=== PATIENT | female | born 1995 | race Caucasian/White ===

== ENCOUNTER 2019-01-22 13:28 | Inpatient (IN) | payer MEDICAID, OTHER ==
[~2019-01-22] VITALS: Ht 167.6 cm; Wt 52.8 kg
--- NOTE | 2019-01-22 13:40 | NUR ---
ED Nurse Note: pt presents to ED c/o suprapubic abd pain that she rates a 9/10. pt states that she has been N/V since last PM and that her pain is now greater on the R side than left and radiates to the back side. pt denies pain with urination or changes in BM. the pain is "sharp and constant." pt also reports feeling "feverish" but did not take her temp at home. pt has a h/o ovarian CA that she has just finished up chemo for.
[2019-01-22] MEDS ORDERED: Omnipaque-300 100ml vial INJ PRN (13:45)
[2019-01-22] MEDS ORDERED: D5NS 1,000 ML IV ONE (13:45)
[2019-01-22] MEDS ORDERED: Lidocaine 2% Visc 15ml soln ORAL ONE (13:45)
--- NOTE | 2019-01-22 13:55 | Emergency Room Report ---
History of Present Illness General Chief Complaint: Abdominal Pain Source: Patient Present Illness HPI 23-year-old female history of metastatic ovarian cancer, presents with right lower quadrant pain that started last night, for dinner, she endorses nausea vomiting, sharp pain aggravated with movement alleviated with rest severity is severe, constant, she endorses fever/chills, reduced appetite, patient presents for evaluation. Allergies: Coded Allergies: KETAMINE (Verified Allergy, Unknown, 01/22/19) MORPHINE (Verified Allergy, Unknown, 01/22/19) Patient History Past Medical History: see triage record Last Menstrual Period: December Reviewed Nursing Documentation: PMH: Agreed; PSxH: Agreed Nursing Documentation-PMH Hx Cancer: Yes - OVARIAN Hx Seizures: Yes Review of Systems All Other Systems: negative except mentioned in HPI Physical Exam Vital Signs Date Time Temp Pulse Resp B/P (MAP) Pulse Ox O2 Delivery O2 Flow Rate FiO2 01/22/19 13:38 99.0 122 19 121/85 (97) 97 Room Air Sp02 EP Interpretation: reviewed, normal General Appearance: well appearing, no apparent distress, alert Head: normocephalic, atraumatic Eyes: bilateral eye PERRL, bilateral eye EOMI ENT: uvula midline, moist mucus membranes Neck: supple, thyroid normal, supple/symm/no masses Respiratory: lungs clear, no respiratory distress, no retraction, no accessory muscle use Cardiovascular #1: normal peripheral pulses, regular rate, rhythm, no edema, no gallop, no murmur Gastrointestinal: soft, no guarding, no rebound, tenderness - Tenderness right lower quadrant, no rebound no guarding, point tenderness McBurney's Musculoskeletal: normal inspection Neurologic: alert, oriented x3 Psychiatric: mood/affect normal Skin: no rash, warm/dry Medical Decision Making Diagnostic Impression: Primary Impression: Abdominal pain Qualified Codes: R10.30 - Lower abdominal pain, unspecified Additional Impression: Cancer associated pain ER Course 23-year-old female presents with lower abdominal pain, vision with a history of ovarian cancer, could be cancer related pain versus appendicitis versus colitis versus obstruction Reevaluation 2:25 PM, patient had a witnessed seizure in the CT, I was called to bedside, patient may have pseudo-versus real seizure, when her left hand was dropped above her face she dodged her face by moving the hand out of the way. Low suspicion for true seizure we will continue to monitor, patient is protecting her airway. Patient requiring Large amounts of pain medication, patient's heart rate would jump above 100, Will admit patient for intractable pain versus cancer related pain, and repeat abdominal exams. Patient admitted to Dr. [facility] Laboratory Tests Test 01/22/19 13:50 01/22/19 14:10 Urine Color Yellow Urine Appearance Clear Urine pH 5 (4.5-8.0) Urine Specific [place] 1.025 (1.005-1.035) Urine Protein 1+ (NEGATIVE) H Urine Glucose (UA) Negative (NEGATIVE) Urine Ketones 4+ (NEGATIVE) H Urine Blood Negative (NEGATIVE) Urine Nitrite Negative (NEGATIVE) Urine Bilirubin Negative (NEGATIVE) Urine Urobilinogen Normal MG/DL (0.0-1.0) Urine Leukocyte Esterase Negative (NEGATIVE) Urine RBC 0 /HPF (0 - 2) Urine WBC 0-2 /HPF (0 - 2) Urine Squamous Epithelial Cells Few /LPF (NONE/OCC) Urine Bacteria Occasional /HPF (NONE) Urine Mucus Few /LPF (NONE/OCC) H Urine HCG, Qualitative Negative (NEGATIVE) Urine Opiates Screen Positive (NEGATIVE) H Urine Barbiturates Screen Negative (NEGATIVE) Phencyclidine (PCP) Screen Negative (NEGATIVE) Urine Amphetamines Screen Negative (NEGATIVE) Urine Benzodiazepines Screen Negative (NEGATIVE) Urine Cocaine Screen Negative (NEGATIVE) Urine Marijuana (THC) Screen Negative (NEGATIVE) White Blood Count 8.8 K/UL (4.8-10.8) Red Blood Count 4.52 M/UL (4.20-5.40) Hemoglobin 13.4 G/DL (12.0-16.0) Hematocrit 38.9 % (37.0-47.0) Mean Corpuscular Volume 86 FL (80-99) Mean Corpuscular Hemoglobin 29.6 PG (27.0-31.0) Mean Corpuscular Hemoglobin Concent 34.4 G/DL (32.0-36.0) Red Cell Distribution Width 11.7 % (11.6-14.8) Platelet Count 265 K/UL (150-450) Mean Platelet Volume 4.5 FL (6.5-10.1) L Neutrophils (%) (Auto) 74.7 % (45.0-75.0) Lymphocytes (%) (Auto) 14.2 % (20.0-45.0) L Monocytes (%) (Auto) 8.1 % (1.0-10.0) Eosinophils (%) (Auto) 1.8 % (0.0-3.0) Basophils (%) (Auto) 1.2 % (0.0-2.0) Sodium Level 142 MMOL/L (136-145) Potassium Level 3.6 MMOL/L (3.5-5.1) Chloride Level 105 MMOL/L (98-107) Carbon Dioxide Level 26 MMOL/L (21-32) Anion Gap 12 mmol/L (5-15) Blood Urea Nitrogen 7 mg/dL (7-18) Creatinine 0.8 MG/DL (0.55-1.30) Estimate Glomerular Filtration Rate > 60 mL/min (>60) Glucose Level 90 MG/DL (74-106) Calcium Level 9.0 MG/DL (8.5-10.1) Total Bilirubin 1.9 MG/DL (0.2-1.0) H Direct Bilirubin 0.3 MG/DL (0.0-0.3) Aspartate Amino Transferase (AST) 11 U/L (15-37) L Alanine Aminotransferase (ALT) 20 U/L (12-78) Alkaline Phosphatase 76 U/L (46-116) Total Protein 7.4 G/DL (6.4-8.2) Albumin 3.9 G/DL (3.4-5.0) Globulin 3.5 g/dL Albumin/Globulin Ratio 1.1 (1.0-2.7) Lipase 70 U/L (73-393) L Human Chorionic Gonadotropin, Quant 1 mIU/mL (1-6) CT/MRI/US Diagnostic Results CT/MRI/US Diagnostic Results : Impression Procedure: CT Abdomen Pelvis w/Contrast Clinical Indication: Right lower quadrant abdominal pain Technique: No oral contrast utilized, per emergency room physician request IV administration nonionic contrast. Venous phase spiral acquisition obtained through the abdomen and pelvis. Multiplanar reconstructions were generated. Total dose length product 557 mGycm. CTDIvol(s) 10 mGy. Dose reduction achieved using automated exposure control Comparison: none Findings: No evidence of colonic diverticulosis or diverticulitis. The appendix is not definitely identified, but no findings to suggest acute appendicitis are evident. No small bowel distention. No free or loculated intraperitoneal gas or fluid is evident. The distal esophagus, stomach, duodenum are unremarkable. The liver demonstrates some focal fatty change in the usual location adjacent to the falciform ligament. No other focal abnormality. The gallbladder, bile ducts, pancreas, adrenals, kidneys are unremarkable. No renal or ureteral calculi, hydronephrosis, nor hydroureter. No pelvic mass or adenopathy demonstrated. The spleen is enlarged, measuring 14.2 cm long axis dimension. The included lung bases are clear. The bones are unremarkable. Impression: Splenomegaly No acute process The CT scanner at [facility] is accredited by the [employer] and the scans are performed using protocols designed to limit radiation exposure to as low as reasonably achievable to attain images of sufficient resolution adequate for diagnostic evaluation. Dictated By: Bryon Wilson MD Electronically Signed By: Bryon Wilson MD Signed Date/Time 01/22/19 5298 CC: Hector Richard MD Last Vital Signs Date Time Temp Pulse Resp B/P (MAP) Pulse Ox O2 Delivery O2 Flow Rate FiO2 01/22/19 13:38 99.0 122 19 121/85 (97) 97 Room Air Disposition: ADMITTED INPATIENT Condition: Stable Hector Richard MD Jan 22, 2019 13:55
[2019-01-22] MEDS ORDERED: Hydromorphone 0.5mg/0.5ml inj IVP ONE ×3 (14:00→17:30)
[2019-01-22 14:15] LABS: APPEARANCE,URINE CLEAR; BILIRUBIN, URINE NEGATIVE (NEGATIVE); GLUCOSE, URINE (UA) NEGATIVE (NEGATIVE); KETONES,URINE 4+ (NEGATIVE); LEUKOCYTE ESTERASE ,URINE NEGATIVE (NEGATIVE); NITRITE,URINE NEGATIVE (NEGATIVE); PH,URINE 5 (4.5-8.0); PROTEIN,URINE 1+ (NEGATIVE); UROBILINOGEN,URINE NORMAL MG/DL (0.0-1.0)
[2019-01-22 14:16] VITALS: BP 121/85
[2019-01-22 14:19] LABS: COLOR,URINE YELLOW
--- NOTE | 2019-01-22 14:20 | NUR ---
ED Nurse Note: pt was taken down to CT
[2019-01-22 14:25] LABS: BASOPHILS % (AUTO) 1.2 % (0.0-2.0); EOSINOPHILS % (AUTO) 1.8 % (0.0-3.0); HEMATOCRIT 38.9 % (37.0-47.0); HEMOGLOBIN 13.4 G/DL (12.0-16.0); LYMPHOCYTES % (AUTO) 14.2 % (20.0-45.0); MEAN CORPUSCULAR VOLUME 86 FL (80-99); MONOCYTES % (AUTO) 8.1 % (1.0-10.0); NEUTROPHILS % (AUTO) 74.7 % (45.0-75.0); PLATELET COUNT 265 K/UL (150-450); RED BLOOD COUNT 4.52 M/UL (4.20-5.40); RED CELL DISTRIBUTION WIDTH 11.7 % (11.6-14.8); WHITE BLOOD COUNT 8.8 K/UL (4.8-10.8)
[2019-01-22 14:41] LABS: ANION GAP 12 mmol/L (5-15); BLOOD UREA NITROGEN 7 mg/dL (7-18); CARBON DIOXIDE 26 MMOL/L (21-32); CHLORIDE 105 MMOL/L (98-107); CREATININE 0.8 MG/DL (0.55-1.30); POTASSIUM 3.6 MMOL/L (3.5-5.1); SODIUM 142 MMOL/L (136-145)
[2019-01-22 14:49] LABS: ALANINE AMINOTRANSFERASE 20 U/L (12-78); ALBUMIN 3.9 G/DL (3.4-5.0); ALBUMIN/GLOBULIN RATIO 1.1 (1.0-2.7); ALKALINE PHOSPHATASE 76 U/L (46-116); ASPARTATE AMINO TRANSFERASE 11 U/L (15-37); BILIRUBIN,TOTAL 1.9 MG/DL (0.2-1.0)
--- NOTE | 2019-01-22 14:50 | NUR ---
ED Nurse Note: pt had an episode of LOC in CT after contrast was given
[2019-01-22 15:04] LABS: BILIRUBIN,DIRECT 0.3 MG/DL (0.0-0.3)
[2019-01-22] MEDS ORDERED: LORazepam Inj 2mg/ml 1ml ONE (15:25)
[2019-01-22 16:00] VITALS: BP 111/63
--- NOTE | 2019-01-22 16:00 | NUR ---
ED Nurse Note: pt was able to ambulate to the restroom but c/o R sided abd px when she ambulated and when she returned. ERMD aware
--- NOTE | 2019-01-22 17:02 | Diagnostic Imaging Report ---
Clinical Indication: Right lower quadrant abdominal pain Technique: No oral contrast utilized, per emergency room physician request IV administration nonionic contrast. Venous phase spiral acquisition obtained through the abdomen and pelvis. Multiplanar reconstructions were generated. Total dose length product 557 mGycm. CTDIvol(s) 10 mGy. Dose reduction achieved using automated exposure control Comparison: none Findings: No evidence of colonic diverticulosis or diverticulitis. The appendix is not definitely identified, but no findings to suggest acute appendicitis are evident. No small bowel distention. No free or loculated intraperitoneal gas or fluid is evident. The distal esophagus, stomach, duodenum are unremarkable. The liver demonstrates some focal fatty change in the usual location adjacent to the falciform ligament. No other focal abnormality. The gallbladder, bile ducts, pancreas, adrenals, kidneys are unremarkable. No renal or ureteral calculi, hydronephrosis, nor hydroureter. No pelvic mass or adenopathy demonstrated. The spleen is enlarged, measuring 14.2 cm long axis dimension. The included lung bases are clear. The bones are unremarkable. Impression: Splenomegaly No acute process The CT scanner at [facility] is accredited by the [employer] and the scans are performed using protocols designed to limit radiation exposure to as low as reasonably achievable to attain images of sufficient resolution adequate for diagnostic evaluation.
[2019-01-22 17:24] VITALS: BP 105/58
--- NOTE | 2019-01-22 18:08 | NUR ---
ED Nurse Note: pt spoke with Dr. Richard and explained that she wanted to stay in the hospital overnight because she is worried about the abd px that has not improved.
--- NOTE | 2019-01-22 18:58 | NUR ---
ED Nurse Note: change of shift, asked to call back in 5 minutes
[2019-01-22 19:25] VITALS: BP 112/59
--- NOTE | 2019-01-22 19:44 | NUR ---
ED Nurse Note: report given to YOVANI Florentino. pt transported by Kevin Adame. in no acute distress, able to keep a sandwich and water down without vomiting
--- NOTE | 2019-01-22 20:05 | NUR ---
NURSE NOTES: Pt received from ER, pt able to make needs known, alert and oriented, pt gave me a list of medications that she takes and I will go over them with the MD, Pt Vitals 98.8, 84hr, 18 rr, BP 104/71, 99% O2 with a pain level of 9.
--- NOTE | 2019-01-22 21:00 | NUR ---
NURSE NOTES: Spoke with MD Owens and received admission orders, went over pt medication and will put orders in the system.
[2019-01-22] MEDS ORDERED: HYDROmorphone 1mg/ml Carpuject IVP PRN (21:45)
[2019-01-22] MEDS ORDERED: LORazepam 0.5mg tab ORAL PRN (21:45)
[2019-01-22] MEDS: Metoclopramide 10mg/2ml Inj IVP PRN (22:06)
[2019-01-22] MEDS: HYDROmorphone 1mg/ml Carpuject IVP PRN (22:35)
--- NOTE | 2019-01-23 07:36 | NUR ---
HAND-OFF: Report given to YOVANI Arreaga.
--- NOTE | 2019-01-23 07:50 | NUR ---
NURSE NOTES: Patient awake, alert x4; on room air, IV Right AC 20G flushes well; will keep monitoring of vomiting; side rails up x2, breaks engaged, bed at lowest position; call light within reach; will keep monitoring.
[2019-01-23 08:00] VITALS: BP 122/78
[2019-01-23 08:19] LABS: HEMOGLOBIN 12.9 G/DL (12.0-16.0); LYMPHOCYTES % (AUTO) 23.4 % (20.0-45.0); MEAN CORPUSCULAR VOLUME 85 FL (80-99); MONOCYTES % (AUTO) 10.8 % (1.0-10.0); NEUTROPHILS % (AUTO) 58.8 % (45.0-75.0); PLATELET COUNT 225 K/UL (150-450); RED BLOOD COUNT 4.24 M/UL (4.20-5.40); RED CELL DISTRIBUTION WIDTH 11.4 % (11.6-14.8); WHITE BLOOD COUNT 6.2 K/UL (4.8-10.8)
[2019-01-23 08:38] LABS: ANION GAP 11 mmol/L (5-15); BLOOD UREA NITROGEN 5 mg/dL (7-18); CALCIUM 8.7 MG/DL (8.5-10.1); CARBON DIOXIDE 26 MMOL/L (21-32); CHLORIDE 106 MMOL/L (98-107); CREATININE 0.5 MG/DL (0.55-1.30); POTASSIUM 3.4 MMOL/L (3.5-5.1); SODIUM 143 MMOL/L (136-145)
--- NOTE | 2019-01-23 08:43 | History and Physical ---
History of Present Illness General Date patient seen: Jan 23, 2019 Reason for Hospitalization: Abdominal Pain Present Illness HPI 23-year-old female history of metastatic ovarian cancer since December 2015 and GBM s/p radiation presents with right lower quadrant pain that started the night prior to admission 12/08, associated with nausea and vomiting. Pain ia constant. Movement aggravates it. She has no appetite. At times has fever and chills. Her ovarian cancer is metastatic to the brain as well as local mets. She has been getting chemo at [facility], Dr. Joseph, has had chemo IV and po, most recently has been on everolimus/affinitor, is s/p XRT to the brain, has had a pelvic lymphadenectomy, and lymph node dissection. ct done in the ED reviewed and remarkable for splenomegaly. She tells me she is BRCA negative. At the time of my exam she is very pleasant. Denies overt pain at rest. She tells me ER doc wanted to discharge her but she didn't feel comfortable going home. Denies dysuria, has normal BM. Last menstrual cycle early December. She has refused debulking and further surgery so far. PMH: as above PSH: Laparoscopy. lymph node dissection Social history: no toxic habits Family hisotry: heart disease, lung cancer Allergies: Coded Allergies: KETAMINE (Verified Allergy, Unknown, 01/22/19) MORPHINE (Verified Allergy, Unknown, 01/22/19) Patient History Healthcare decision maker N Resuscitation status Full Code Advanced Directive on File Social History Social History: (1) Cancer associated pain (2) Abdominal pain Review of Systems Constitutional: Reports: no symptoms, see HPI, chills, sweats, fever, malaise, weakness, other Eye: Denies: no symptoms, see HPI, eye pain, blurred vision, tearing, double vision, nose pain, nose congestion, acuity changes, discharge, other ENT: Denies: no symptoms, see HPI, ear pain, ear discharge, nose pain, nose congestion, throat pain, throat swelling, mouth pain, hearing loss, nasal discharge, other Respiratory: Denies: no symptoms, see HPI, cough, orthopnea, shortness of breath, stridor, wheezing, MIRZA, sputum, other Cardiovascular: Denies: no symptoms, see HPI, chest pain, edema, palpitations, syncope, PND, other Gastrointestinal: Reports: no symptoms, see HPI, abdominal pain, constipation, diarrhea, nausea, vomiting, melena, hematemesis, other Genitourinary: Denies: no symptoms, see HPI, discharge, dysuria, frequency, hematuria, pain, retention, incontinence, urgency, vag bleed/dc, other Musculoskeletal: Denies: no symptoms, see HPI, back pain, gout, joint pain, joint swelling, muscle pain, muscle stiffness, other Skin: Denies: no symptoms, see HPI, rash, change in color, change in hair/nails , dryness, lesions, other Psychiatric: Denies: no symptoms, see HPI, prior hx, anxiety, depressed feelings, emotional problems, SI, HI, hallucinations, other Neurological: Denies: no symptoms, see HPI, headache, numbness, paresthesia, seizure, tingling, tremors, focal weakness, syncope, dizziness, other Endocrine: Denies: no symptoms, see HPI, excessive sweating, flushing, intolerance to temperature, increased thirst, increased urine, unexplained weight loss, other Hematologic/Lymphatic: Denies: no symptoms, see HPI, anemia, blood clots, easy bleeding, easy bruising, swollen glands, diathesis, other Physical Exam Physical Exam Narrative General Appearance: well appearing, no apparent distress, alert Head: normocephalic, atraumatic Eyes: bilateral eye PERRL, bilateral eye EOMI ENT: uvula midline, moist mucus membranes Neck: supple, thyroid normal, supple/symm/no masses Respiratory: lungs clear, no respiratory distress, no retraction, no accessory muscle use Cardiovascular: normal peripheral pulses, regular rate, rhythm, no edema, no gallop, no murmur Gastrointestinal: soft, no guarding, no rebound, tenderness - Tenderness right lower quadrant, Rovsing's positive Musculoskeletal: normal inspection Neurologic: alert, oriented x3, grossly normal Psychiatric: mood/affect normal, Skin: no rash, warm/dry Last 24 Hour Vital Signs Date Time Temp Pulse Resp B/P (MAP) Pulse Ox O2 Delivery O2 Flow Rate FiO2 01/22/19 21:55 Room Air 01/22/19 19:45 82 15 112/59 100 Room Air 01/22/19 19:25 82 14 112/59 98 Room Air 01/22/19 17:24 93 13 105/58 98 Room Air 01/22/19 16:30 98.9 01/22/19 16:00 86 111/63 97 Room Air 01/22/19 15:30 98.9 01/22/19 14:16 99.0 19 121/85 97 Room Air 01/22/19 14:14 122 19 Room Air 01/22/19 13:38 99.0 122 19 121/85 (97) 97 Room Air Intake and Output 01/22/19 01/23/19 19:00 07:00 Intake Total 300 ml Output Total 500 ml Balance -200 ml Intake Oral 300 ml Output Urine Total 500 ml # Voids 4 Laboratory Tests Test 01/22/19 13:50 01/22/19 14:10 01/23/19 07:20 Urine Color Yellow Urine Appearance Clear Urine pH 5 (4.5-8.0) Urine Specific [place] 1.025 (1.005-1.035) Urine Protein 1+ (NEGATIVE) H Urine Glucose (UA) Negative (NEGATIVE) Urine Ketones 4+ (NEGATIVE) H Urine Blood Negative (NEGATIVE) Urine Nitrite Negative (NEGATIVE) Urine Bilirubin Negative (NEGATIVE) Urine Urobilinogen Normal MG/DL (0.0-1.0) Urine Leukocyte Esterase Negative (NEGATIVE) Urine RBC 0 /HPF (0 - 2) Urine WBC 0-2 /HPF (0 - 2) Urine Squamous Epithelial Cells Few /LPF (NONE/OCC) Urine Bacteria Occasional /HPF (NONE) Urine Mucus Few /LPF (NONE/OCC) H Urine HCG, Qualitative Negative (NEGATIVE) Urine Opiates Screen Positive (NEGATIVE) H Urine Barbiturates Screen Negative (NEGATIVE) Phencyclidine (PCP) Screen Negative (NEGATIVE) Urine Amphetamines Screen Negative (NEGATIVE) Urine Benzodiazepines Screen Negative (NEGATIVE) Urine Cocaine Screen Negative (NEGATIVE) Urine Marijuana (THC) Screen Negative (NEGATIVE) White Blood Count 8.8 K/UL (4.8-10.8) 6.2 K/UL (4.8-10.8) Red Blood Count 4.52 M/UL (4.20-5.40) 4.24 M/UL (4.20-5.40) Hemoglobin 13.4 G/DL (12.0-16.0) 12.9 G/DL (12.0-16.0) Hematocrit 38.9 % (37.0-47.0) 36.0 % (37.0-47.0) L Mean Corpuscular Volume 86 FL (80-99) 85 FL (80-99) Mean Corpuscular Hemoglobin 29.6 PG (27.0-31.0) 30.4 PG (27.0-31.0) Mean Corpuscular Hemoglobin Concent 34.4 G/DL (32.0-36.0) 35.8 G/DL (32.0-36.0) Red Cell Distribution Width 11.7 % (11.6-14.8) 11.4 % (11.6-14.8) L Platelet Count 265 K/UL (150-450) 225 K/UL (150-450) Mean Platelet Volume 4.5 FL (6.5-10.1) L 5.2 FL (6.5-10.1) L Neutrophils (%) (Auto) 74.7 % (45.0-75.0) 58.8 % (45.0-75.0) Lymphocytes (%) (Auto) 14.2 % (20.0-45.0) L 23.4 % (20.0-45.0) Monocytes (%) (Auto) 8.1 % (1.0-10.0) 10.8 % (1.0-10.0) H Eosinophils (%) (Auto) 1.8 % (0.0-3.0) 6.0 % (0.0-3.0) H Basophils (%) (Auto) 1.2 % (0.0-2.0) 1.0 % (0.0-2.0) Sodium Level 142 MMOL/L (136-145) 143 MMOL/L (136-145) Potassium Level 3.6 MMOL/L (3.5-5.1) 3.4 MMOL/L (3.5-5.1) L Chloride Level 105 MMOL/L (98-107) 106 MMOL/L (98-107) Carbon Dioxide Level 26 MMOL/L (21-32) 26 MMOL/L (21-32) Anion Gap 12 mmol/L (5-15) 11 mmol/L (5-15) Blood Urea Nitrogen 7 mg/dL (7-18) 5 mg/dL (7-18) L Creatinine 0.8 MG/DL (0.55-1.30) 0.5 MG/DL (0.55-1.30) L Estimat Glomerular Filtration Rate > 60 mL/min (>60) > 60 mL/min (>60) Glucose Level 90 MG/DL (74-106) 78 MG/DL (74-106) Calcium Level 9.0 MG/DL (8.5-10.1) 8.7 MG/DL (8.5-10.1) Total Bilirubin 1.9 MG/DL (0.2-1.0) H Direct Bilirubin 0.3 MG/DL (0.0-0.3) Aspartate Amino Transf (AST/SGOT) 11 U/L (15-37) L Alanine Aminotransferase (ALT/SGPT) 20 U/L (12-78) Alkaline Phosphatase 76 U/L (46-116) Total Protein 7.4 G/DL (6.4-8.2) Albumin 3.9 G/DL (3.4-5.0) Globulin 3.5 g/dL Albumin/Globulin Ratio 1.1 (1.0-2.7) Lipase 70 U/L (73-393) L Human Chorionic Gonadotropin, Quant 1 mIU/mL (1-6) Height (Feet): 5 Height (Inches): 6.00 Weight (Pounds): 117 Medications Current Medications Medications (Trade) Dose Ordered Sig/Enrique Route PRN Reason Start Time Stop Time Status Last Admin Dose Admin Acetaminophen/ Hydrocodone Bitart ([place] 5/325) 1 tab Q6H PRN ORAL Moderate Pain (Pain Scale 4-6) 01/22/19 21:45 01/29/19 21:44 Carbamazepine (TEGretol) 200 mg BID ORAL 01/23/19 09:00 02/22/19 08:59 Dexamethasone (Decadron) 2 mg DAILY ORAL 01/23/19 09:00 02/22/19 08:59 Heparin Sodium (Porcine) (Heparin 5000 units/ml) 5,000 units EVERY 12 HOURS SUBQ 01/23/19 09:00 02/22/19 08:59 Hydromorphone HCl (Dilaudid) 0.5 mg Q3HR PRN IVP Breakthrough Pain 01/22/19 21:45 01/29/19 21:44 Hydromorphone HCl (Dilaudid) 1 mg Q3HR PRN IVP Severe Pain (Pain Scale 7-10) 01/22/19 21:45 01/29/19 21:44 01/22/19 22:35 Iohexol (OMNIPAQUE-300 100ml) 100 ml NOW PRN INJ Radiology Procedure 01/22/19 13:45 01/24/19 13:44 Lorazepam (Ativan) 0.25 mg BEDTIME PRN ORAL For Anxiety 01/22/19 21:45 01/29/19 21:44 Metoclopramide HCl (Reglan) 10 mg Q6H PRN IVP Nausea & Vomiting 01/22/19 21:45 02/21/19 21:44 01/22/19 22:06 Ondansetron HCl (Zofran) 4 mg Q6H PRN ORAL Nausea & Vomiting 01/22/19 21:45 02/21/19 21:44 Trazodone HCl (Desyrel) 25 mg BEDTIME ORAL 01/23/19 21:00 02/22/19 20:59 Objective Narrative Procedure: CT Abdomen Pelvis w/Contrast Clinical Indication: Right lower quadrant abdominal pain Technique: No oral contrast utilized, per emergency room physician request IV administration nonionic contrast. Venous phase spiral acquisition obtained through the abdomen and pelvis. Multiplanar reconstructions were generated. Total dose length product 557 mGycm. CTDIvol(s) 10 mGy. Dose reduction achieved using automated exposure control Comparison: none Findings: No evidence of colonic diverticulosis or diverticulitis. The appendix is not definitely identified, but no findings to suggest acute appendicitis are evident. No small bowel distention. No free or loculated intraperitoneal gas or fluid is evident. The distal esophagus, stomach, duodenum are unremarkable. The liver demonstrates some focal fatty change in the usual location adjacent to the falciform ligament. No other focal abnormality. The gallbladder, bile ducts, pancreas, adrenals, kidneys are unremarkable. No renal or ureteral calculi, hydronephrosis, nor hydroureter. No pelvic mass or adenopathy demonstrated. The spleen is enlarged, measuring 14.2 cm long axis dimension. The included lung bases are clear. The bones are unremarkable. Impression: Splenomegaly No acute process Assessment/Plan Problem List: (1) Abdominal pain ICD Codes: R10.9 - Unspecified abdominal pain SNOMED: 69143035 Qualifiers: Qualified Codes: R10.30 - Lower abdominal pain, unspecified (2) Cancer associated pain ICD Codes: G89.3 - Neoplasm related pain (acute) (chronic) SNOMED: 59781445621493 (3) Ovarian cancer ICD Codes: C56.9 - Malignant neoplasm of unspecified ovary SNOMED: 028432216 (4) Primary cancer of ovary with widespread metastatic disease ICD Codes: C56.9 - Malignant neoplasm of unspecified ovary; C80.0 - Disseminated malignant neoplasm, unspecified SNOMED: [id number] Status: stable Assessment/Plan: 23 year old female with Ovarian cancer that is metastatic to the brain as well as local area. She has been getting chemo at [facility], Dr. Joseph, has had chemo IV and po, most recently has been on everolimus/affinitor, is s/p XRT to the brain, has had a pelvic lymphadenectomy, and lymph node dissection, now p/w worsening abdominal pain. #Abdominal pain. ? related to mets, ?cancer related pain, ? adhesions #Metastatic ovarian CA with brain mets -ct reviewed, splenomegaly -surgical evaluation, GI evaluation -Hematology consult. case d/w Dr. [place] -pain control -stool softener -Serial abdominal exams I spent 70 minutes on this encounter. >50% spent on care coordination and counselling. Time of note may not reflect time of encounter Kyler Aldrich M.D. Jan 23, 2019 08:43
[2019-01-23] MEDS: carBAMazepine 200mg tab ORAL SCH ×2 (08:49→17:37)
[2019-01-23] MEDS: Metoclopramide 10mg/2ml Inj IVP PRN ×3 (08:49→22:30)
[2019-01-23] MEDS: Heparin 5000 units/ml inj SUBQ SCH ×2 (08:50→20:46)
[2019-01-23] MEDS: HYDROmorphone 1mg/ml Carpuject IVP PRN ×2 (08:53→15:39)
[2019-01-23 12:00] VITALS: BP 100/83
[2019-01-23] MEDS: HYDROcodone/Acetamin 5/325 tab ORAL PRN ×2 (12:01→18:17)
--- NOTE | 2019-01-23 12:06 | Consultation ---
History of Present Illness General Chief Complaint: Abdominal Pain Present Illness Allergies: Coded Allergies: KETAMINE (Verified Allergy, Unknown, 01/22/19) MORPHINE (Verified Allergy, Unknown, 01/22/19) Patient History Healthcare decision maker N Resuscitation status Full Code Advanced Directive on File Physical Exam Last 24 Hour Vital Signs Date Time Temp Pulse Resp B/P (MAP) Pulse Ox O2 Delivery O2 Flow Rate FiO2 01/23/19 09:23 97.6 01/23/19 08:00 97.6 90 18 122/78 (93) 99 01/22/19 21:55 Room Air 01/22/19 19:45 82 15 112/59 100 Room Air 01/22/19 19:25 82 14 112/59 98 Room Air 01/22/19 17:24 93 13 105/58 98 Room Air 01/22/19 16:30 98.9 01/22/19 16:00 86 111/63 97 Room Air 01/22/19 15:30 98.9 01/22/19 14:16 99.0 19 121/85 97 Room Air 01/22/19 14:14 122 19 Room Air 01/22/19 13:38 99.0 122 19 121/85 (97) 97 Room Air Intake and Output 01/22/19 01/23/19 19:00 07:00 Intake Total 300 ml Output Total 500 ml Balance -200 ml Intake Oral 300 ml Output Urine Total 500 ml # Voids 4 Laboratory Tests Test 01/22/19 13:50 01/22/19 14:10 01/23/19 07:20 Urine Color Yellow Urine Appearance Clear Urine pH 5 (4.5-8.0) Urine Specific [place] 1.025 (1.005-1.035) Urine Protein 1+ (NEGATIVE) H Urine Glucose (UA) Negative (NEGATIVE) Urine Ketones 4+ (NEGATIVE) H Urine Blood Negative (NEGATIVE) Urine Nitrite Negative (NEGATIVE) Urine Bilirubin Negative (NEGATIVE) Urine Urobilinogen Normal MG/DL (0.0-1.0) Urine Leukocyte Esterase Negative (NEGATIVE) Urine RBC 0 /HPF (0 - 2) Urine WBC 0-2 /HPF (0 - 2) Urine Squamous Epithelial Cells Few /LPF (NONE/OCC) Urine Bacteria Occasional /HPF (NONE) Urine Mucus Few /LPF (NONE/OCC) H Urine HCG, Qualitative Negative (NEGATIVE) Urine Opiates Screen Positive (NEGATIVE) H Urine Barbiturates Screen Negative (NEGATIVE) Phencyclidine (PCP) Screen Negative (NEGATIVE) Urine Amphetamines Screen Negative (NEGATIVE) Urine Benzodiazepines Screen Negative (NEGATIVE) Urine Cocaine Screen Negative (NEGATIVE) Urine Marijuana (THC) Screen Negative (NEGATIVE) White Blood Count 8.8 K/UL (4.8-10.8) 6.2 K/UL (4.8-10.8) Red Blood Count 4.52 M/UL (4.20-5.40) 4.24 M/UL (4.20-5.40) Hemoglobin 13.4 G/DL (12.0-16.0) 12.9 G/DL (12.0-16.0) Hematocrit 38.9 % (37.0-47.0) 36.0 % (37.0-47.0) L Mean Corpuscular Volume 86 FL (80-99) 85 FL (80-99) Mean Corpuscular Hemoglobin 29.6 PG (27.0-31.0) 30.4 PG (27.0-31.0) Mean Corpuscular Hemoglobin Concent 34.4 G/DL (32.0-36.0) 35.8 G/DL (32.0-36.0) Red Cell Distribution Width 11.7 % (11.6-14.8) 11.4 % (11.6-14.8) L Platelet Count 265 K/UL (150-450) 225 K/UL (150-450) Mean Platelet Volume 4.5 FL (6.5-10.1) L 5.2 FL (6.5-10.1) L Neutrophils (%) (Auto) 74.7 % (45.0-75.0) 58.8 % (45.0-75.0) Lymphocytes (%) (Auto) 14.2 % (20.0-45.0) L 23.4 % (20.0-45.0) Monocytes (%) (Auto) 8.1 % (1.0-10.0) 10.8 % (1.0-10.0) H Eosinophils (%) (Auto) 1.8 % (0.0-3.0) 6.0 % (0.0-3.0) H Basophils (%) (Auto) 1.2 % (0.0-2.0) 1.0 % (0.0-2.0) Sodium Level 142 MMOL/L (136-145) 143 MMOL/L (136-145) Potassium Level 3.6 MMOL/L (3.5-5.1) 3.4 MMOL/L (3.5-5.1) L Chloride Level 105 MMOL/L (98-107) 106 MMOL/L (98-107) Carbon Dioxide Level 26 MMOL/L (21-32) 26 MMOL/L (21-32) Anion Gap 12 mmol/L (5-15) 11 mmol/L (5-15) Blood Urea Nitrogen 7 mg/dL (7-18) 5 mg/dL (7-18) L Creatinine 0.8 MG/DL (0.55-1.30) 0.5 MG/DL (0.55-1.30) L Estimat Glomerular Filtration Rate > 60 mL/min (>60) > 60 mL/min (>60) Glucose Level 90 MG/DL (74-106) 78 MG/DL (74-106) Calcium Level 9.0 MG/DL (8.5-10.1) 8.7 MG/DL (8.5-10.1) Total Bilirubin 1.9 MG/DL (0.2-1.0) H Direct Bilirubin 0.3 MG/DL (0.0-0.3) Aspartate Amino Transf (AST/SGOT) 11 U/L (15-37) L Alanine Aminotransferase (ALT/SGPT) 20 U/L (12-78) Alkaline Phosphatase 76 U/L (46-116) Total Protein 7.4 G/DL (6.4-8.2) Albumin 3.9 G/DL (3.4-5.0) Globulin 3.5 g/dL Albumin/Globulin Ratio 1.1 (1.0-2.7) Lipase 70 U/L (73-393) L Human Chorionic Gonadotropin, Quant 1 mIU/mL (1-6) Height (Feet): 5 Height (Inches): 6.00 Weight (Pounds): 117 Medications Current Medications Medications (Trade) Dose Ordered Sig/Enrique Route PRN Reason Start Time Stop Time Status Last Admin Dose Admin Acetaminophen/ Hydrocodone Bitart ([place] 5/325) 1 tab Q6H PRN ORAL Moderate Pain (Pain Scale 4-6) 01/22/19 21:45 01/29/19 21:44 Carbamazepine (TEGretol) 200 mg BID ORAL 01/23/19 09:00 02/22/19 08:59 01/23/19 08:49 Dexamethasone (Decadron) 2 mg DAILY ORAL 01/23/19 09:00 02/22/19 08:59 01/23/19 08:49 Heparin Sodium (Porcine) (Heparin 5000 units/ml) 5,000 units EVERY 12 HOURS SUBQ 01/23/19 09:00 02/22/19 08:59 01/23/19 08:50 Hydromorphone HCl (Dilaudid) 0.5 mg Q3HR PRN IVP Breakthrough Pain 01/22/19 21:45 01/29/19 21:44 Hydromorphone HCl (Dilaudid) 1 mg Q3HR PRN IVP Severe Pain (Pain Scale 7-10) 01/22/19 21:45 01/29/19 21:44 01/23/19 08:53 Iohexol (OMNIPAQUE-300 100ml) 100 ml NOW PRN INJ Radiology Procedure 01/22/19 13:45 01/24/19 13:44 Lorazepam (Ativan) 0.25 mg BEDTIME PRN ORAL For Anxiety 01/22/19 21:45 01/29/19 21:44 Metoclopramide HCl (Reglan) 10 mg Q6H PRN IVP Nausea & Vomiting 01/22/19 21:45 02/21/19 21:44 01/23/19 08:49 Ondansetron HCl (Zofran) 4 mg Q6H PRN ORAL Nausea & Vomiting 01/22/19 21:45 02/21/19 21:44 Trazodone HCl (Desyrel) 25 mg BEDTIME ORAL 01/23/19 21:00 02/22/19 20:59 Assessment/Plan Assessment/Plan: Oncology Consultation REJonh TOUSSAINT: Ashley 01/23/19 DOS RFC: EVal of Ovarian ca HPI 23-year-old female history of metastatic ovarian cancer, presents with right lower quadrant pain that started last night, for dinner, she endorses nausea vomiting, sharp pain aggravated with movement alleviated with rest severity is severe, constant, she endorses fever/chills, reduced appetite, patient presents for evaluation. Imaging reviewed, further onco history as per below, concerning at this time for abd process, gi and surg to eval. Allergies: KETAMINE (Verified Allergy, Unknown, 01/22/19) MORPHINE (Verified Allergy, Unknown, 01/22/19) Patient History Past Medical History: see triage record Last Menstrual Period: WEEK December Reviewed Nursing Documentation: PMH: Agreed; PSxH: Agreed Nursing Documentation-PMH Hx Cancer: Yes - OVARIAN Hx Seizures: Yes Social history, used to smoke marijuana, still yanna occasionally, has no kids, is single,worked at a [employer] ROS1 General: Denies fatigue, fever, chills, weight loss; + weight gain as above HENT: Denies oral sores, neck masses, nasal d/c, hearing problems Vison: Denies change in vision, eye pain, redness, discharge Cardiac: As above Pulmonary: As above GI: ++ left sided abd pain, burning to left pelvic area : As per HPI Neuro: Denies seizure, weakness, numbness Endo: Denies heat/cold intolerance, weight changes, polyuria, polydipsia Heme/Onc: Denies unusual bleeding, bruising, clotting MSK: Denies join pain, swelling, muscle aches Mental Health: Denies anxiety, depression, mood changes PE: Vitals: reviewed General Appearance: NAD HEENT: normocephalic, atraumatic Neck: non-tender, normal alignment Respiratory/Chest: normal breath sounds bilaterally Cardiovascular/Chest: normal peripheral pulses, normal rate Abdomen: normal bowel sounds, soft, nontender, neg mcburneys point Extremities: normal range of motion Labs: noted Imaging: noted Assessment and Recs: # Ovarian cancer that is metastatic to the brain as well as local area, imaging has been reviewed, she has been getting chemo at [facility], Dr. Joseph, has had chemo IV and po, most recently has been on everolimus/affinitor, is s/p XRT to the brain , has had a pelvic lymphadenectomy, and lymph node dissection, now p/w worsening abd pain. ct reviewed and only c/f splenomegaly --> Continue f/u with [facility], has had a break in chemo recently, was on affinitor, as at least 2nd line --> clinical trial eval at the [facility], f/u with Dr. Joseph --> is BRCA negative --> with brain mets --> adhesions may involve abdomen # Abdominal pain --> consider gi and surg eval --> may be related to mets, imaging does not seem to show this # Cancer associated pain --> agree with pain control --> stool softeners # Splenomegaly The timing of this note does not necessarily reflect the time of the patient was seen. Greatly appreciate consultation. Jacob Irizarry MD Jan 23, 2019 12:06
[2019-01-23 16:00] VITALS: BP 112/58
--- NOTE | 2019-01-23 19:32 | NUR ---
NURSE NOTES: Pt received in bed asleep and resting well with no signs of distress at the moment, pt told the AM nurse that she vomited and had diarrhea but it was unwitnessed, I will request pt show me the vomit and diarrhea when it occurs, last night pt did not have any signs or express that she had diarrhea or vomiting after receiving Reglan last night, will continue to monitor. Pt able to make needs known, call light within reach.
--- NOTE | 2019-01-23 19:39 | NUR ---
HAND-OFF: Report given to YOVANI Yen.
[2019-01-23 20:00] VITALS: BP 111/64
[2019-01-23] MEDS: TraZODone HCl 25 mg tablet ORAL SCH (21:00)
[2019-01-23] MEDS ORDERED: HYDROmorphone 1mg/ml Carpuject IVP PRN (21:45)
[2019-01-23] MEDS ORDERED: HYDROmorphone 2mg tab ORAL PRN (21:45)
[2019-01-23] MEDS: Acetaminophen 500mg (ES) tab ORAL SCH (22:16)
[2019-01-23] MEDS: HYDROmorphone 4mg tab ORAL PRN ×2 (22:17→22:27)
--- NOTE | 2019-01-23 22:30 | NUR ---
NURSE NOTES: Dropped pt medication(dilaudid PO), wasted medication and wasted in Pyxis, retrieved another one and administered.
[2019-01-24] MEDS: Acetaminophen 500mg (ES) tab ORAL SCH (05:51)
--- NOTE | 2019-01-24 05:51 | NUR ---
NURSE NOTES: giving pt scheduled tylenol, when asked pt states she did not vomit or have diarrhea last night.
--- NOTE | 2019-01-24 07:05 | NUR ---
HAND-OFF: Report given to YOVANI Vasquez.
--- NOTE | 2019-01-24 07:36 | NUR ---
NURSE NOTES: pt awake, a/o x 4, calm , complained of pain 3/10, mild nausea, no vomiting. call light within reach. fall precaution maintained. will continue to monitor.
[2019-01-24 08:00] VITALS: BP 92/50
[2019-01-24] MEDS: carBAMazepine 200mg tab ORAL SCH ×2 (09:51→17:12)
[2019-01-24] MEDS: Heparin 5000 units/ml inj SUBQ SCH ×2 (09:53→20:13)
[2019-01-24] MEDS: HYDROmorphone 4mg tab ORAL PRN (10:03)
[2019-01-24] MEDS: Metoclopramide 10mg/2ml Inj IVP PRN ×2 (10:07→18:52)
--- NOTE | 2019-01-24 10:41 | General Progress Note ---
Assessment/Plan Problem List: (1) Abdominal pain ICD Codes: R10.9 - Unspecified abdominal pain SNOMED: 04181953 Qualifiers: Qualified Codes: R10.30 - Lower abdominal pain, unspecified (2) Cancer associated pain ICD Codes: G89.3 - Neoplasm related pain (acute) (chronic) SNOMED: 56104398936083 (3) Ovarian cancer ICD Codes: C56.9 - Malignant neoplasm of unspecified ovary SNOMED: 291887716 (4) Primary cancer of ovary with widespread metastatic disease ICD Codes: C56.9 - Malignant neoplasm of unspecified ovary; C80.0 - Disseminated malignant neoplasm, unspecified SNOMED: 808229663 Status: stable Assessment/Plan: 23 year old female with Ovarian cancer that is metastatic to the brain as well as local area. She has been getting chemo at [facility], Dr. Joseph, has had chemo IV and po, most recently has been on everolimus/affinitor, is s/p XRT to the brain, has had a pelvic lymphadenectomy, and lymph node dissection, now p/w worsening abdominal pain. #Abdominal pain with n/v. ? related to mets, ?cancer related pain, ? adhesions #Metastatic ovarian CA with brain mets -ct reviewed, splenomegaly -surgical evaluation, GI evaluation. case d/w Dr. Doe and Marisol. MRI abdomen pelvis. CT head to evaluate for midline shift and central cause of n/v -Hematology consult. case d/w Dr. Mesa -pain control Gregory and torodol -Zofran and Reglan -stool softener -Serial abdominal exams I spent 40 minutes on this encounter. >50% spent on care coordination and counselling. Time of note may not reflect time of encounter Subjective Date patient seen: Jan 24, 2019 ROS Limited/Unobtainable: No Constitutional: Reports: weakness - genralized HEENT: Denies: no symptoms, eye pain, blurred vision, tearing, double vision, ear pain, ear discharge, nose pain, nose congestion, throat pain, throat swelling, mouth pain, mouth swelling, other Cardiovascular: Reports: lightheadedness - unsteady gait Respiratory: Denies: no symptoms, cough, orthopnea, shortness of breath, SOB with excertion, SOB at rest, sputum, stridor, wheezing, other Gastrointestinal/Abdominal: Reports: no symptoms, abdomen distended, black stools, tarry stools, blood in stool, constipated, diarrhea, difficulty swallowing, poor appetite, poor fluid intake, rectal bleeding, other Genitourinary: Denies: no symptoms, burning, discharge, frequency, flank pain, hematuria, incontinence, pain, urgency, other Neurologic/Psychiatric: Denies: no symptoms, anxiety, depressed, emotional problems, headache, numbness, paresthesia, pre-existing deficit, seizure, tingling, tremors, weakness, other Endocrine: Denies: no symptoms, excessive sweating, flushing, intolerance to cold, intolerance to heat, increased hunger, increased thirst, increased urine, unexplained weight gain, unexplained weight loss, other Hematologic/Lymphatic: Denies: no symptoms, anemia, easy bleeding, easy bruising, other Allergies: Coded Allergies: KETAMINE (Verified Allergy, Unknown, 01/22/19) MORPHINE (Verified Allergy, Unknown, 01/22/19) Subjective persistent LLQ abd pain thinks she has appendicitis No acute events Objective Last 24 Hour Vital Signs Date Time Temp Pulse Resp B/P (MAP) Pulse Ox O2 Delivery O2 Flow Rate FiO2 01/24/19 10:33 98.0 01/24/19 09:00 Room Air 01/24/19 08:00 98.0 75 19 92/50 (64) 97 01/23/19 21:00 Room Air 01/23/19 20:00 99.7 90 19 111/64 (80) 96 01/23/19 18:47 97.6 01/23/19 16:09 97.6 01/23/19 16:00 98.0 108 19 112/58 (76) 97 01/23/19 12:00 98.2 95 19 100/83 (89) 95 Intake and Output 01/23/19 01/24/19 19:00 07:00 Intake Total 900 ml 740 ml Balance 900 ml 740 ml Intake Oral 740 ml Other 900 ml Height (Feet): 5 Height (Inches): 6.00 Weight (Pounds): 117 Objective General Appearance: well appearing, no apparent distress, alert Head: normocephalic, atraumatic Eyes: bilateral eye PERRL, bilateral eye EOMI ENT: uvula midline, moist mucus membranes Neck: supple, thyroid normal, supple/symm/no masses Respiratory: lungs clear, no respiratory distress, no retraction, no accessory muscle use Cardiovascular: normal peripheral pulses, regular rate, rhythm, no edema, no gallop, no murmur Gastrointestinal: soft, no guarding, no rebound, tenderness - Tenderness right lower quadrant, Rovsing's positive Musculoskeletal: normal inspection Neurologic: alert, oriented x3, grossly normal Psychiatric: mood/affect normal, Skin: no rash, warm/dry Kyler Aldrich M.D. Jan 24, 2019 10:41
--- NOTE | 2019-01-24 11:22 | General Progress Note ---
Assessment/Plan Problem List: (1) Primary cancer of ovary with widespread metastatic disease ICD Codes: C56.9 - Malignant neoplasm of unspecified ovary; C80.0 - Disseminated malignant neoplasm, unspecified SNOMED: 331514875 (2) Ovarian cancer ICD Codes: C56.9 - Malignant neoplasm of unspecified ovary SNOMED: 604827556 (3) Abdominal pain ICD Codes: R10.9 - Unspecified abdominal pain SNOMED: 88998001 Qualifiers: Qualified Codes: R10.30 - Lower abdominal pain, unspecified Status: stable Assessment/Plan: possible central cause (brain mets) for N/V CT reviewed labs reviewed surg in put appreciated fu oncology recs consider brain CT reglan and zofran PRN Subjective ROS Limited/Unobtainable: Yes Allergies: Coded Allergies: KETAMINE (Verified Allergy, Unknown, 01/22/19) MORPHINE (Verified Allergy, Unknown, 01/22/19) Objective Last 24 Hour Vital Signs Date Time Temp Pulse Resp B/P (MAP) Pulse Ox O2 Delivery O2 Flow Rate FiO2 01/24/19 10:33 98.0 01/24/19 09:00 Room Air 01/24/19 08:00 98.0 75 19 92/50 (64) 97 01/23/19 21:00 Room Air 01/23/19 20:00 99.7 90 19 111/64 (80) 96 01/23/19 18:47 97.6 01/23/19 16:09 97.6 01/23/19 16:00 98.0 108 19 112/58 (76) 97 01/23/19 12:00 98.2 95 19 100/83 (89) 95 Intake and Output 01/23/19 01/24/19 19:00 07:00 Intake Total 900 ml 740 ml Balance 900 ml 740 ml Intake Oral 740 ml Other 900 ml Height (Feet): 5 Height (Inches): 6.00 Weight (Pounds): 117 General Appearance: alert EENT: PERRL/EOMI Neck: supple Cardiovascular: normal rate Respiratory/Chest: decreased breath sounds Abdomen: normal bowel sounds, non tender, soft Extremities: non-tender Laurent Damon MD Jan 24, 2019 11:22
--- NOTE | 2019-01-24 11:52 | NUR ---
pt refused CT of the head, notified , will dc order.
[2019-01-24 12:00] VITALS: BP 107/60
--- NOTE | 2019-01-24 13:09 | Consultation ---
History of Present Illness General Date patient seen: Jan 24, 2019 Reason for Hospitalization: Abdominal Pain Present Illness HPI This is a 23-year-old very pleasant yet unfortunate female who presented to [facility] emergency department complaining of worsening abdominal pain. Patient states approximately 4 to 5 days ago she began to develop some abdominal discomfort in the pelvic region and over the subsequent day or 2 radiating down to the right lower quadrant. Pain starting as cramping but has exacerbated to a sharp right lower quadrant debilitating pain. States she was having difficulty walking. States intermittent nausea, fevers subjective, nonbloody emesis. States she had some diarrhea. In ED labs normal, CT could not clearly identify the appendix but no inflammatory interabdominal process noted. Patient was admitted for further care and management. Surgery was called to evaluate. Patient seen, patient divided, chart reviewed. Patient with history of CARBONATING [employer]ER cancer with metastasis undergoing chemo and brain radiation at an outside facility and clinical trial study. Allergies: Coded Allergies: KETAMINE (Verified Allergy, Unknown, 01/22/19) MORPHINE (Verified Allergy, Unknown, 01/22/19) Patient History History Provided By: Patient, Medical Record Healthcare decision maker N Resuscitation status Full Code Advanced Directive on File Past Medical/Surgical History Past Medical/Surgical History: (1) Cancer associated pain (2) Abdominal pain (3) Ovarian cancer (4) Primary cancer of ovary with widespread metastatic disease Review of Systems Review of Symptoms General ROS: no weight loss or fever Psychological ROS: no depression or mood changes, no memory loss Ophthalmic ROS: no visual changes or eye irritation ENT ROS: no nasal congestion, hearing loss, dizziness Allergy and Immunology ROS: no allergic symptoms or urticaria Hematological and Lymphatic ROS: no swollen glands, unusual bleeding or bruising Endocrine ROS: no polyuria, polydipsia, weight changes, temperature intolerance Respiratory ROS: no cough, shortness of breath, or wheezing Cardiovascular ROS: no chest pain or dyspnea on exertion Gastrointestinal ROS: abdominal pain, no bright red blood in stool. Musculoskeletal ROS: no myalgias or arthralgias Neurological ROS: no TIA or stroke symptoms Dermatological ROS: no new or changing skin lesions, rashes or pruritis Physical Exam Physical Exam General appearance: alert, cooperative, no distress, appears stated age Head: Normocephalic, without obvious abnormality, atraumatic Eyes: conjunctivae/corneas clear. PERRL, EOM's intact. Fundi benign Throat: Lips, mucosa, and tongue normal. Teeth and gums normal Neck: supple, symmetrical, trachea midline, no adenopathy, thyroid: not enlarged, symmetric, no tenderness/mass/nodules, no carotid bruit and no JVD Lungs: clear to auscultation bilaterally Heart: regular rate and rhythm, S1, S2 normal, no murmur, click, rub or gallop Abdomen: soft, patient is tender throughout the entire abdomen. States that when anywhere the abdomen that is touched radiates to the right lower quadrant and discomfort. In all honesty component of the exam is very exaggerated and is even prior to touching patient she begins to complain of pain even with the slightest touch as compared to the deepest touch the pain is unchanged and 10 out of 10 throughout both touches. There is direct guarding it is not involuntary and seems his guarding begins prior to even touching her. Difficult exam overall. Extremities: extremities normal, atraumatic, no cyanosis or edema Pulses: 2+ and symmetric Skin: Skin color, texture, turgor normal. No rashes or lesions Neurologic: Grossly normal Last 24 Hour Vital Signs Date Time Temp Pulse Resp B/P (MAP) Pulse Ox O2 Delivery O2 Flow Rate FiO2 01/24/19 10:33 98.0 01/24/19 09:00 Room Air 01/24/19 08:00 98.0 75 19 92/50 (64) 97 01/23/19 21:00 Room Air 01/23/19 20:00 99.7 90 19 111/64 (80) 96 01/23/19 18:47 97.6 01/23/19 16:09 97.6 01/23/19 16:00 98.0 108 19 112/58 (76) 97 Intake and Output 01/23/19 01/24/19 19:00 07:00 Intake Total 900 ml 740 ml Balance 900 ml 740 ml Intake Oral 740 ml Other 900 ml Height (Feet): 5 Height (Inches): 6.00 Weight (Pounds): 117 Medications Current Medications Medications (Trade) Dose Ordered Sig/Enrique Route PRN Reason Start Time Stop Time Status Last Admin Dose Admin Acetaminophen (Tylenol) 1,000 mg Q8HR ORAL 01/23/19 22:00 02/22/19 21:59 01/24/19 05:51 Acetaminophen/ Hydrocodone Bitart ([place] 10325) 1 tab Q4H PRN ORAL For Pain 01/24/19 12:00 01/31/19 11:59 Carbamazepine (TEGretol) 200 mg BID ORAL 01/23/19 09:00 02/22/19 08:59 01/24/19 09:51 Dexamethasone (Decadron) 2 mg DAILY ORAL 01/23/19 09:00 02/22/19 08:59 01/24/19 09:50 Heparin Sodium (Porcine) (Heparin 5000 units/ml) 5,000 units EVERY 12 HOURS SUBQ 01/23/19 09:00 02/22/19 08:59 01/24/19 09:53 Hydromorphone HCl (Dilaudid) 1 mg Q3H PRN IVP Breakthrough Pain 01/23/19 21:45 01/30/19 21:44 Hydromorphone HCl (Dilaudid) 2 mg Q4H PRN ORAL Moderate Pain (Pain Scale 4-6) 01/23/19 21:45 01/30/19 21:44 Hydromorphone HCl (Dilaudid) 4 mg Q4H PRN ORAL Severe Pain (Pain Scale 7-10) 01/23/19 21:45 01/30/19 21:44 01/24/19 10:03 Iohexol (OMNIPAQUE-300 100ml) 100 ml NOW PRN INJ Radiology Procedure 01/22/19 13:45 01/24/19 13:44 Lorazepam (Ativan) 0.25 mg BEDTIME PRN ORAL For Anxiety 01/22/19 21:45 01/29/19 21:44 Metoclopramide HCl (Reglan) 10 mg Q6H PRN IVP Nausea & Vomiting 01/22/19 21:45 02/21/19 21:44 01/24/19 10:07 Ondansetron HCl (Zofran) 4 mg Q6H PRN ORAL Nausea & Vomiting 01/22/19 21:45 02/21/19 21:44 Trazodone HCl (Desyrel) 25 mg BEDTIME ORAL 01/23/19 21:00 02/22/19 20:59 Assessment/Plan Problem List: (1) Abdominal pain Assessment & Plan: This is a 23-year-old female presenting with worsening abdominal pain. Began 5 days ago with low pelvic pain and became excruciating right lower quadrant pain. Nausea vomiting subjective fevers. Labs okay. CT noted personally reviewed by myself. Based on clinical history alone strong suspicion for acute appendicitis but based on laboratory and CT findings there is no clear evidence identified patient actually having appendicitis. Furthermore her exam is fairly unreliable as patient based on clinical textbook describes pain in the manner that it should be but exam begins prior to true examination beginning. Furthermore when patient is sitting resting and having a conversation she is able to move without as much discomfort as when discussing examination where even with the slightest turns she exhibits excruciating pain. Though I am not saying patient is malingering there is definitely potential other etiology of pain. Okay for trial oral diet IV fluids Continue antibiotics for the time being We will order MRI of the abdomen tomorrow to ensure no infected or inflammatory intra-abdominal process Thank you for allowing me participation's care ICD Codes: R10.9 - Unspecified abdominal pain SNOMED: [id number] Qualifiers: Qualified Codes: R10.30 - Lower abdominal pain, unspecified Master Doe Jan 24, 2019 13:09
[2019-01-24] MEDS ORDERED: Gadavist 7.5mMol/7.5ml vial IV PRN (13:15)
[2019-01-24] MEDS: HYDROcodone/Acetamin 10/325 tab ORAL PRN ×2 (15:55→20:10)
[2019-01-24 16:00] VITALS: BP 108/67
[2019-01-24] MEDS: Ketorolac 30mg Inj IV PRN ×2 (17:20→17:51)
--- NOTE | 2019-01-24 19:20 | NUR ---
HAND-OFF: Report given to Yovana PINA.
--- NOTE | 2019-01-24 19:35 | NUR ---
NURSE NOTES: Pt received in bed awake alert, able to make needs known, call light within reach, head of bed elevated, no c/o pain at the moment, pt w/o vomiting or diarrhea per AM nurse, will continue to monitor.
[2019-01-24 20:00] VITALS: BP 128/74
[2019-01-24] MEDS: TraZODone HCl 25 mg tablet ORAL SCH (21:56)
[2019-01-25] MEDS: HYDROcodone/Acetamin 10/325 tab ORAL PRN ×2 (02:52→10:26)
[2019-01-25 04:00] VITALS: BP 116/63
[2019-01-25] MEDS: Ketorolac 30mg Inj IV PRN (05:03)
--- NOTE | 2019-01-25 07:05 | NUR ---
HAND-OFF: Report given to YOVANI Vasquez.
--- NOTE | 2019-01-25 07:21 | NUR ---
NURSE NOTES: Pt resting in bed. pain 3/10, no N/V, tolerating diet. no BM. call light within reach, bed alarm on , fall and seizure precautions maintained, side rails padded. will continue to monitor.
[2019-01-25 07:37] LABS: BASOPHILS % (AUTO) 1.1 % (0.0-2.0); EOSINOPHILS % (AUTO) 2.4 % (0.0-3.0); HEMATOCRIT 35.6 % (37.0-47.0); HEMOGLOBIN 12.6 G/DL (12.0-16.0); LYMPHOCYTES % (AUTO) 35.6 % (20.0-45.0); MEAN CORPUSCULAR VOLUME 85 FL (80-99); MONOCYTES % (AUTO) 8.7 % (1.0-10.0); NEUTROPHILS % (AUTO) 52.1 % (45.0-75.0); PLATELET COUNT 235 K/UL (150-450); RED BLOOD COUNT 4.19 M/UL (4.20-5.40); RED CELL DISTRIBUTION WIDTH 11.7 % (11.6-14.8); WHITE BLOOD COUNT 8.5 K/UL (4.8-10.8)
[2019-01-25 07:38] LABS: INR 0.9 (0.9-1.1)
[2019-01-25 07:57] LABS: ALANINE AMINOTRANSFERASE 14 U/L (12-78); ALBUMIN 3.6 G/DL (3.4-5.0); ALBUMIN/GLOBULIN RATIO 1.2 (1.0-2.7); ALKALINE PHOSPHATASE 62 U/L (46-116); AMYLASE 43 U/L (25-115); ANION GAP 10 mmol/L (5-15); ASPARTATE AMINO TRANSFERASE 13 U/L (15-37); BILIRUBIN,TOTAL 0.5 MG/DL (0.2-1.0); BLOOD UREA NITROGEN 8 mg/dL (7-18); CALCIUM 8.5 MG/DL (8.5-10.1); CARBON DIOXIDE 26 MMOL/L (21-32); CHLORIDE 106 MMOL/L (98-107); CREATININE 0.6 MG/DL (0.55-1.30); SODIUM 142 MMOL/L (136-145)
--- NOTE | 2019-01-25 08:08 | NUR ---
NURSE NOTES: pt K 3.0, left message to Dr Rivera, waiting for call back.
[2019-01-25 10:14] VITALS: BP 125/58
[2019-01-25] MEDS: carBAMazepine 200mg tab ORAL SCH ×2 (10:26→17:11)
[2019-01-25] MEDS: Heparin 5000 units/ml inj SUBQ SCH (10:29)
--- NOTE | 2019-01-25 11:28 | NUR ---
*-* NO INSURANCE INFORMATION ON THE BAR UNABLE TOS END CLINCALS OR REVIEWS *-*
--- NOTE | 2019-01-25 11:35 | NUR ---
*-* INSURANCE *-* ALL AVAILABLE CLINICALS HAVE BEEN FAXED TO: [facility]# [id number] /PENDING [place]: TERRIE P- [phone] F- [phone]...REVIEW/CLINICAL
[2019-01-25 12:00] VITALS: BP 110/62
--- NOTE | 2019-01-25 13:19 | GI Progress Note ---
Assessment/Plan Problems: (1) Cancer associated pain ICD Codes: G89.3 - Neoplasm related pain (acute) (chronic) SNOMED: 70007192658556 (2) Ovarian cancer ICD Codes: C56.9 - Malignant neoplasm of unspecified ovary SNOMED: 947704388 (3) Primary cancer of ovary with widespread metastatic disease ICD Codes: C56.9 - Malignant neoplasm of unspecified ovary; C80.0 - Disseminated malignant neoplasm, unspecified SNOMED: 524258722 (4) Abdominal pain ICD Codes: R10.9 - Unspecified abdominal pain SNOMED: 83322041 Qualifiers: Qualified Codes: R10.30 - Lower abdominal pain, unspecified Status: unchanged Status Narrative Discussed with Dr. Damon Assessment/Plan possible central cause (brain mets) for N/V CT reviewed labs reviewed surg in put appreciated fu oncology recs consider brain CT reglan and zofran PRN, will consider adding Compazine if needed Recommend for pain consultation We will follow on a daily basis with recommendations The patient was seen and examined at bedside and all new and available data was reviewed in the patients chart. I agree with the above findings, impression and plan. (Patient seen earlier today. Signature stamp does not reflect patient encounter time.). - Laurent Damon MD Subjective Subjective Patient still has complaint of severe abdominal pain with minimal relief from current pain medication Has complaint of nausea No reported vomiting Objective Last 24 Hour Vital Signs Date Time Temp Pulse Resp B/P (MAP) Pulse Ox O2 Delivery O2 Flow Rate FiO2 01/25/19 10:56 98.3 01/25/19 10:14 98.3 90 18 125/58 (80) 100 01/25/19 09:00 Room Air 01/25/19 04:00 98.1 68 20 116/63 (80) 98 01/24/19 21:00 Room Air 01/24/19 20:00 98.1 88 19 128/74 (92) 96 01/24/19 18:21 98.1 01/24/19 16:00 98.1 72 17 108/67 (81) 98 Intake and Output 01/24/19 01/25/19 19:00 07:00 Intake Total 480 ml Balance 480 ml Intake Oral 480 ml Laboratory Tests Test 01/25/19 06:06 White Blood Count 8.5 K/UL (4.8-10.8) Red Blood Count 4.19 M/UL (4.20-5.40) L Hemoglobin 12.6 G/DL (12.0-16.0) Hematocrit 35.6 % (37.0-47.0) L Mean Corpuscular Volume 85 FL (80-99) Mean Corpuscular Hemoglobin 30.2 PG (27.0-31.0) Mean Corpuscular Hemoglobin Concent 35.5 G/DL (32.0-36.0) Red Cell Distribution Width 11.7 % (11.6-14.8) Platelet Count 235 K/UL (150-450) Mean Platelet Volume 4.7 FL (6.5-10.1) L Neutrophils (%) (Auto) 52.1 % (45.0-75.0) Lymphocytes (%) (Auto) 35.6 % (20.0-45.0) Monocytes (%) (Auto) 8.7 % (1.0-10.0) Eosinophils (%) (Auto) 2.4 % (0.0-3.0) Basophils (%) (Auto) 1.1 % (0.0-2.0) Erythrocyte Sedimentation Rate 3 MM/HR (0-20) Prothrombin Time 10.1 SEC (9.30-11.50) Prothromb Time International Ratio 0.9 (0.9-1.1) Activated Partial Thromboplast Time 26 SEC (23-33) Sodium Level 142 MMOL/L (136-145) Potassium Level 3.0 MMOL/L (3.5-5.1) L Chloride Level 106 MMOL/L (98-107) Carbon Dioxide Level 26 MMOL/L (21-32) Anion Gap 10 mmol/L (5-15) Blood Urea Nitrogen 8 mg/dL (7-18) Creatinine 0.6 MG/DL (0.55-1.30) Estimat Glomerular Filtration Rate > 60 mL/min (>60) Glucose Level 78 MG/DL (74-106) Calcium Level 8.5 MG/DL (8.5-10.1) Magnesium Level 2.1 MG/DL (1.8-2.4) Total Bilirubin 0.5 MG/DL (0.2-1.0) Aspartate Amino Transf (AST/SGOT) 13 U/L (15-37) L Alanine Aminotransferase (ALT/SGPT) 14 U/L (12-78) Alkaline Phosphatase 62 U/L (46-116) C-Reactive Protein, Quantitative < 0.4 mg/dL (0.00-0.90) Total Protein 6.6 G/DL (6.4-8.2) Albumin 3.6 G/DL (3.4-5.0) Globulin 3.0 g/dL Albumin/Globulin Ratio 1.2 (1.0-2.7) Amylase Level 43 U/L (25-115) Lipase 123 U/L (73-393) Height (Feet): 5 Height (Inches): 6.00 Weight (Pounds): 117 General Appearance: WD/WN, no apparent distress, alert Cardiovascular: normal rate Respiratory/Chest: normal breath sounds, no respiratory distress Abdominal Exam: normal bowel sounds, non tender, soft Extremities: normal range of motion, non-tender Olivier Vicente NP Jan 25, 2019 13:19
[2019-01-25] MEDS: oxyCODONE HCL/Acetaminophen 5/325mg ORAL PRN (14:19)
[2019-01-25] MEDS: Metoclopramide 10mg/2ml Inj IVP PRN ×2 (14:25→21:44)
[2019-01-25] MEDS ORDERED: LORazepam Inj 2mg/ml 1ml IV PRN (15:15)
--- NOTE | 2019-01-25 15:44 | Surgery Progress Note ---
Surgery Progress Note Subjective Additional Comments Patient seen and examined bedside. No acute events. States she still has severe lower abdominal pain 10 out of 10 without radiation. Intermittent nausea no reported emesis. Passing flatus. Labs noted and inflammatory markers are all negative ESR CRP normal no white count no shift. Electrolytes normal. MRI abdomen pending results Objective Last 24 Hour Vital Signs Date Time Temp Pulse Resp B/P (MAP) Pulse Ox O2 Delivery O2 Flow Rate FiO2 01/25/19 14:49 98.3 01/25/19 12:00 98.2 88 18 110/62 (78) 100 01/25/19 10:56 98.3 01/25/19 10:14 98.3 90 18 125/58 (80) 100 01/25/19 09:00 Room Air 01/25/19 04:00 98.1 68 20 116/63 (80) 98 01/24/19 21:00 Room Air 01/24/19 20:00 98.1 88 19 128/74 (92) 96 01/24/19 18:21 98.1 01/24/19 16:00 98.1 72 17 108/67 (81) 98 I&O Intake and Output 01/24/19 01/25/19 19:00 07:00 Intake Total 480 ml Balance 480 ml Intake Oral 480 ml Cardiovascular: RSR Respiratory: clear Abdomen: soft, tenderness - As per patient, present bowel sounds, non-distended Extremities: no edema, no tenderness, no cyanosis Laboratory Tests Test 01/25/19 06:06 White Blood Count 8.5 K/UL (4.8-10.8) Red Blood Count 4.19 M/UL (4.20-5.40) L Hemoglobin 12.6 G/DL (12.0-16.0) Hematocrit 35.6 % (37.0-47.0) L Mean Corpuscular Volume 85 FL (80-99) Mean Corpuscular Hemoglobin 30.2 PG (27.0-31.0) Mean Corpuscular Hemoglobin Concent 35.5 G/DL (32.0-36.0) Red Cell Distribution Width 11.7 % (11.6-14.8) Platelet Count 235 K/UL (150-450) Mean Platelet Volume 4.7 FL (6.5-10.1) L Neutrophils (%) (Auto) 52.1 % (45.0-75.0) Lymphocytes (%) (Auto) 35.6 % (20.0-45.0) Monocytes (%) (Auto) 8.7 % (1.0-10.0) Eosinophils (%) (Auto) 2.4 % (0.0-3.0) Basophils (%) (Auto) 1.1 % (0.0-2.0) Erythrocyte Sedimentation Rate 3 MM/HR (0-20) Prothrombin Time 10.1 SEC (9.30-11.50) Prothromb Time International Ratio 0.9 (0.9-1.1) Activated Partial Thromboplast Time 26 SEC (23-33) Sodium Level 142 MMOL/L (136-145) Potassium Level 3.0 MMOL/L (3.5-5.1) L Chloride Level 106 MMOL/L (98-107) Carbon Dioxide Level 26 MMOL/L (21-32) Anion Gap 10 mmol/L (5-15) Blood Urea Nitrogen 8 mg/dL (7-18) Creatinine 0.6 MG/DL (0.55-1.30) Estimat Glomerular Filtration Rate > 60 mL/min (>60) Glucose Level 78 MG/DL (74-106) Calcium Level 8.5 MG/DL (8.5-10.1) Magnesium Level 2.1 MG/DL (1.8-2.4) Total Bilirubin 0.5 MG/DL (0.2-1.0) Aspartate Amino Transf (AST/SGOT) 13 U/L (15-37) L Alanine Aminotransferase (ALT/SGPT) 14 U/L (12-78) Alkaline Phosphatase 62 U/L (46-116) C-Reactive Protein, Quantitative < 0.4 mg/dL (0.00-0.90) Total Protein 6.6 G/DL (6.4-8.2) Albumin 3.6 G/DL (3.4-5.0) Globulin 3.0 g/dL Albumin/Globulin Ratio 1.2 (1.0-2.7) Amylase Level 43 U/L (25-115) Lipase 123 U/L (73-393) Plan Problems: (1) Abdominal pain Assessment & Plan: This is a 23-year-old female presenting with worsening abdominal pain. Began 5 days ago with low pelvic pain and became excruciating right lower quadrant pain. Nausea vomiting subjective fevers. Labs okay. CT noted personally reviewed by myself. Based on clinical history alone strong suspicion for acute appendicitis but based on laboratory and CT findings there is no clear evidence identified patient actually having appendicitis. Furthermore her exam is fairly unreliable as patient based on clinical textbook describes pain in the manner that it should be but exam begins prior to true examination beginning. Furthermore when patient is sitting resting and having a conversation she is able to move without as much discomfort as when discussing examination where even with the slightest turns she exhibits excruciating pain. Though I am not saying patient is malingering there is definitely potential other etiology of pain. Diet as tolerated IV fluids Continue antibiotics for the time being Inflammatory markers all normal Exam unchanged pending MRI results We will follow with recommendations Thank you for allowing me participation's care Master Doe Jan 25, 2019 15:44
[2019-01-25 16:00] VITALS: BP 115/57
--- NOTE | 2019-01-25 16:39 | Diagnostic Imaging Report ---
Indication: Abdominal pain Technique: MRI of the abdomen was performed in a 1.5 Mariluz magnet. Pulse sequences obtained include coronal and axial T2 single shot fast spin echo breathhold, Axial T1 FSPGR in/out phase, Axial T2 FSE w/ fat saturation, Axial 2-D FIESTA, Ax/Cor T1 LAVA. Comparison: CT abdomen pelvis 01/22/2019 Findings: Appendix is not seen. There are no inflammatory changes identified and no abnormal fluid collections are seen. There is some breathing motion which limits evaluation of the upper abdomen. There is no bowel dilatation. Uterus noted. Urinary bladder is unremarkable. No hydronephrosis or biliary ductal dilatation identified. Gallbladder is partially noted. IMPRESSION: Nonidentification of the appendix. No secondary signs of acute appendicitis identified. Acute appendicitis is doubtful although this study does not completely exclude the possibility of early acute appendicitis.
[2019-01-25] MEDS: Hydromorphone 0.5mg/0.5ml inj IVP PRN ×2 (17:12→21:43)
--- NOTE | 2019-01-25 18:23 | General Progress Note ---
Assessment/Plan Problem List: (1) Hypokalemia ICD Codes: E87.6 - Hypokalemia SNOMED: 40364720 (2) Cancer associated pain ICD Codes: G89.3 - Neoplasm related pain (acute) (chronic) SNOMED: 83112123248876 (3) Ovarian cancer ICD Codes: C56.9 - Malignant neoplasm of unspecified ovary SNOMED: 188136202 (4) Primary cancer of ovary with widespread metastatic disease ICD Codes: C56.9 - Malignant neoplasm of unspecified ovary; C80.0 - Disseminated malignant neoplasm, unspecified SNOMED: 140751194 (5) Abdominal pain ICD Codes: R10.9 - Unspecified abdominal pain SNOMED: 92445681 Qualifiers: Qualified Codes: R10.30 - Lower abdominal pain, unspecified Status: unchanged Assessment/Plan: 23 year old female with Ovarian cancer that is metastatic to the brain as well as local area. She has been getting chemo at [facility], Dr. Joseph, has had chemo IV and po, most recently has been on everolimus/affinitor, is s/p XRT to the brain, has had a pelvic lymphadenectomy, and lymph node dissection, now p/w worsening abdominal pain. #RLQ Abdominal pain with n/v. DDx: appendicitis (not visualized well on CT), PID, Ovarian torsion, #Metastatic ovarian CA with brain mets. On Tegretol and Dexamethasone #seizure disorder related to brain mets. > Patient refusing CT head. Can hold off for now as patient has known brain mets and is on dexamethasone and tegretol for such. -ct reviewed, splenomegaly -surgical evaluation, GI evaluation. case d/w Dr. Doe and Marisol. MRI abdomen pelvis today -Hematology consult. case d/w Dr. Mesa -Transvaginal ultrasound today -Send for GC and Chlamydia -pain control Percocet 5 and 10 Q6hr PRN with dilaudid 0.5mg IV Q3hr PRN breakthrough pain -Consider pain management consult if unable to control pain -Zofran and Reglan for nausea -stool softener -Serial abdominal exams #hypokalemia - replete PRN FENPPX DVTPPX: lovenox 40mg SBQ daily GI PPX: none Fluids: none Diet: Regular Lines: peripheral PT/OT: pending Code status: Full Dispo: Home with home health likely Reason for Continued Hospitalization: Uncontrollable pain. I spent 38 minutes on this encounter. Discussed with RN, Patient, and GI. >50% spent on care coordination and counselling. Time of note may not reflect time of encounter Subjective Date patient seen: Jan 25, 2019 Constitutional: Denies: chills, diaphoresis, fever, malaise, weakness, other HEENT: Denies: eye pain, blurred vision, tearing, double vision, ear pain, ear discharge, nose pain, nose congestion, throat pain, throat swelling, mouth pain , mouth swelling, other Cardiovascular: Denies: chest pain, edema, irregular heart rate, lightheadedness, palpitations, syncope, other Respiratory: Denies: cough, orthopnea, shortness of breath, SOB with excertion , SOB at rest, sputum, stridor, wheezing, other Gastrointestinal/Abdominal: Denies: abdomen distended, abdominal pain, black stools, tarry stools, blood in stool, constipated, diarrhea, difficulty swallowing, nausea, poor appetite, poor fluid intake, rectal bleeding, vomiting , other Genitourinary: Denies: burning, discharge, frequency, flank pain, hematuria, incontinence, pain, urgency, other Neurologic/Psychiatric: Denies: anxiety, depressed, emotional problems, headache, numbness, paresthesia, pre-existing deficit, seizure, tingling, tremors, weakness, other Endocrine: Denies: excessive sweating, flushing, intolerance to cold, intolerance to heat, increased hunger, increased thirst, increased urine, unexplained weight gain, unexplained weight loss, other Hematologic/Lymphatic: Denies: anemia, easy bleeding, easy bruising, other Allergies: Coded Allergies: KETAMINE (Verified Allergy, Unknown, 01/22/19) MORPHINE (Verified Allergy, Unknown, 01/22/19) Subjective No acute events overnight per nursing. Patient continues to complain of right lower quadrant abdominal pain, constant, 8 out of 10, sharp, radiating to back. Denies any nausea vomiting diarrhea vaginal discharge vaginal bleeding. Has not been sexually active for the past 3 months. Has a prior ovarian ultrasound a few months ago that was normal per patient. Objective Last 24 Hour Vital Signs Date Time Temp Pulse Resp B/P (MAP) Pulse Ox O2 Delivery O2 Flow Rate FiO2 01/25/19 17:42 98.6 01/25/19 16:00 98.6 88 20 115/57 (76) 99 01/25/19 14:49 98.3 01/25/19 12:00 98.2 88 18 110/62 (78) 100 01/25/19 10:56 98.3 01/25/19 10:14 98.3 90 18 125/58 (80) 100 01/25/19 09:00 Room Air 01/25/19 04:00 98.1 68 20 116/63 (80) 98 01/24/19 21:00 Room Air 01/24/19 20:00 98.1 88 19 128/74 (92) 96 01/24/19 18:21 98.1 Intake and Output 01/24/19 01/25/19 19:00 07:00 Intake Total 480 ml Balance 480 ml Intake Oral 480 ml Laboratory Tests 01/25/19 06:06: White Blood Count 8.5, Red Blood Count 4.19L, Hemoglobin 12.6, Hematocrit 35.6L , Mean Corpuscular Volume 85, Mean Corpuscular Hemoglobin 30.2, Mean Corpuscular Hemoglobin Concent 35.5, Red Cell Distribution Width 11.7, Platelet Count 235, Mean Platelet Volume 4.7L, Neutrophils (%) (Auto) 52.1, Lymphocytes ( %) (Auto) 35.6, Monocytes (%) (Auto) 8.7, Eosinophils (%) (Auto) 2.4, Basophils (%) (Auto) 1.1, Erythrocyte Sedimentation Rate 3, Prothrombin Time 10.1, Prothromb Time International Ratio 0.9, Activated Partial Thromboplast Time 26, Sodium Level 142, Potassium Level 3.0L, Chloride Level 106, Carbon Dioxide Level 26, Anion Gap 10, Blood Urea Nitrogen 8, Creatinine 0.6, Estimat Glomerular Filtration Rate > 60, Glucose Level 78, Calcium Level 8.5, Magnesium Level 2.1, Total Bilirubin 0.5, Aspartate Amino Transf (AST/SGOT) 13L, Alanine Aminotransferase (ALT/SGPT) 14, Alkaline Phosphatase 62, C-Reactive Protein, Quantitative < 0.4, Total Protein 6.6, Albumin 3.6, Globulin 3.0, Albumin/ Globulin Ratio 1.2, Amylase Level 43, Lipase 123 Height (Feet): 5 Height (Inches): 6.00 Weight (Pounds): 117 General Appearance: WD/WN, no apparent distress, alert EENT: PERRL/EOMI, normal ENT inspection Neck: non-tender, normal alignment, supple Cardiovascular: normal peripheral pulses, normal rate, regular rhythm, no JVD Respiratory/Chest: chest wall non-tender, lungs clear, normal breath sounds Abdomen: normal bowel sounds, other - Right lower quadrant pain with guarding, and no rebound. 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 Jan 25, 2019 18:23
--- NOTE | 2019-01-25 19:40 | NUR ---
NURSE NOTES: Received a report from YOVANI Vasquez. Pt is in stable condition. AAOX4. Able to make needs known. On room air. IV site is patent and intact. Bed in lowest position. Bed alarm is on. Call light within reach. Will continue to monitor.
--- NOTE | 2019-01-25 19:54 | NUR ---
HAND-OFF: Report given to Raven PINA.
[2019-01-25 20:00] VITALS: BP 98/55
[2019-01-25] MEDS: TraZODone HCl 25 mg tablet ORAL SCH (20:18)
[2019-01-26] VITALS (16 sets, daily range): BP systolic 90–195; BP diastolic 44–81
--- NOTE | 2019-01-26 07:05 | NUR ---
HAND-OFF: Report given to Berhane Joseph RN. Pt is in stable condition.
[2019-01-26 07:24] LABS: BASOPHILS % (AUTO) 1.1 % (0.0-2.0); EOSINOPHILS % (AUTO) 2.5 % (0.0-3.0); HEMOGLOBIN 13.1 G/DL (12.0-16.0); LYMPHOCYTES % (AUTO) 35.8 % (20.0-45.0); MEAN CORPUSCULAR VOLUME 85 FL (80-99); MONOCYTES % (AUTO) 10.6 % (1.0-10.0); PLATELET COUNT 233 K/UL (150-450); RED BLOOD COUNT 4.35 M/UL (4.20-5.40); RED CELL DISTRIBUTION WIDTH 11.9 % (11.6-14.8); WHITE BLOOD COUNT 8.3 K/UL (4.8-10.8)
[2019-01-26 07:37] LABS: ANION GAP 9 mmol/L (5-15); BLOOD UREA NITROGEN 10 mg/dL (7-18); CALCIUM 8.6 MG/DL (8.5-10.1); CARBON DIOXIDE 26 MMOL/L (21-32); CHLORIDE 106 MMOL/L (98-107); CREATININE 0.6 MG/DL (0.55-1.30); POTASSIUM 3.5 MMOL/L (3.5-5.1); SODIUM 141 MMOL/L (136-145)
[2019-01-26] MEDS: carBAMazepine 200mg tab ORAL SCH ×2 (08:20→17:16)
--- NOTE | 2019-01-26 08:22 | NUR ---
NURSE NOTES: PT AXOX4, RESTING IN BED. IN NO APPARENT DISTRESS AT THIS TIME. PT STATES SHE FEELS CONSTANT SHARP ACHING PAIN OF RLQ, DENIES N/V. CURRENT PAIN LEVEL 6-7, STATES PAIN IS TOLERABLE TO LEVEL 5. PT EDUCATED ON AVAILABLE PRN PAIN MEDICATION BUT REFUSES PAIN MEDS AT THIS TIME. PT STATES SHE WILL ASK FOR PAIN MEDICATIONS WHEN SHE IS MORE ACITVE, WANTS TO REST IN BED AT THIS TIME. CALL LIGHT WITHIN REACH. WILL CONTINUE TO MONITOR.
[2019-01-26] MEDS: Enoxaparin 40mg Inj SUBQ SCH (08:25)
--- NOTE | 2019-01-26 09:16 | Diagnostic Imaging Report ---
Indication: Pelvic pain. Negative test Technique: Transabdominal and transvaginal images of the pelvis. Doppler interrogation of the bilateral ovaries Comparison: none Findings: Uterus measures 6.6 cm length by 3.8 cm AP. Endometrium measures 9 mm thick. No myometrial abnormality. The left ovary measures 3.6 cm length. Right ovary measures 2.6 cm length. Both ovaries demonstrate normal flow on Doppler imaging. Left ovary contains a 16 mm hemorrhagic cyst. Trace free fluid is seen adjacent to the left ovary Impression: No acute abnormality. No evidence of ovarian torsion Incidental finding 16 mm left ovarian hemorrhagic cyst, probably hemorrhagic dominant follicle Trace free fluid, presumably physiologic
[2019-01-26] MEDS: Metoclopramide 10mg/2ml Inj IVP PRN ×2 (09:24→18:46)
[2019-01-26] MEDS: oxyCODONE HCL/Acetaminophen 5/325mg ORAL PRN (09:25)
[2019-01-26] MEDS ORDERED: CARBAMAZEPINE200 MG ORAL (10:19)
[2019-01-26] MEDS ORDERED: PERCOCET1 TAB ORAL (10:19)
[2019-01-26] MEDS ORDERED: DESYREL50 MG ORAL (10:19)
[2019-01-26] MEDS: Ketorolac 30mg Inj IV PRN (12:19)
--- NOTE | 2019-01-26 12:56 | NUR ---
NURSE NOTES: PER PT, HER FRIEND CAYLA WILL BE ABLE TO END WORKER PT AROUND [id number].
--- NOTE | 2019-01-26 12:57 | GI Progress Note ---
Assessment/Plan Problems: (1) Cancer associated pain ICD Codes: G89.3 - Neoplasm related pain (acute) (chronic) SNOMED: 27706568838808 (2) Ovarian cancer ICD Codes: C56.9 - Malignant neoplasm of unspecified ovary SNOMED: 865703085 (3) Primary cancer of ovary with widespread metastatic disease ICD Codes: C56.9 - Malignant neoplasm of unspecified ovary; C80.0 - Disseminated malignant neoplasm, unspecified SNOMED: 110403111 (4) Abdominal pain ICD Codes: R10.9 - Unspecified abdominal pain SNOMED: 82121726 Qualifiers: Qualified Codes: R10.30 - Lower abdominal pain, unspecified Status: unchanged Status Narrative Discussed with Dr. Damon. Assessment/Plan possible central cause (brain mets) for N/V CT reviewed, MRI abdomen reviewed labs reviewed surg in put appreciated oncology recs consider brain CT reglan and zofran PRN, will consider adding Compazine if needed Recommend for pain consultation We will follow on a daily basis with recommendations The patient was seen and examined at bedside and all new and available data was reviewed in the patients chart. I agree with the above findings, impression and plan. (Patient seen earlier today. Signature stamp does not reflect patient encounter time.). - Laurent Damon MD Subjective Subjective Patient still has complaint of severe abdominal pain with minimal relief from current pain medication Has complaint of nausea No reported vomiting Objective Last 24 Hour Vital Signs Date Time Temp Pulse Resp B/P (MAP) Pulse Ox O2 Delivery O2 Flow Rate FiO2 01/26/19 12:00 97.9 90 17 195/44 (94) 97 01/26/19 09:00 Room Air 01/26/19 08:00 98.2 70 19 110/81 (91) 98 01/26/19 04:00 98.2 69 18 91/60 (70) 98 01/26/19 00:00 98.1 70 20 90/60 (70) 98 01/25/19 21:00 Room Air 01/25/19 20:47 98.4 01/25/19 20:00 98.4 85 18 98/55 (69) 98 01/25/19 17:42 98.6 01/25/19 16:00 98.6 88 20 115/57 (76) 99 01/25/19 14:49 98.3 Intake and Output 01/25/19 01/26/19 19:00 07:00 Intake Total 480 ml Balance 480 ml Intake Oral 480 ml # Voids 3 2 Laboratory Tests Test 01/25/19 18:50 01/26/19 06:15 Chlamydia trachomatis RNA Pending Neisseria gonorrhoeae RNA Pending White Blood Count 8.3 K/UL (4.8-10.8) Red Blood Count 4.35 M/UL (4.20-5.40) Hemoglobin 13.1 G/DL (12.0-16.0) Hematocrit 37.0 % (37.0-47.0) Mean Corpuscular Volume 85 FL (80-99) Mean Corpuscular Hemoglobin 30.1 PG (27.0-31.0) Mean Corpuscular Hemoglobin Concent 35.3 G/DL (32.0-36.0) Red Cell Distribution Width 11.9 % (11.6-14.8) Platelet Count 233 K/UL (150-450) Mean Platelet Volume 4.8 FL (6.5-10.1) L Neutrophils (%) (Auto) 50.0 % (45.0-75.0) Lymphocytes (%) (Auto) 35.8 % (20.0-45.0) Monocytes (%) (Auto) 10.6 % (1.0-10.0) H Eosinophils (%) (Auto) 2.5 % (0.0-3.0) Basophils (%) (Auto) 1.1 % (0.0-2.0) Sodium Level 141 MMOL/L (136-145) Potassium Level 3.5 MMOL/L (3.5-5.1) Chloride Level 106 MMOL/L (98-107) Carbon Dioxide Level 26 MMOL/L (21-32) Anion Gap 9 mmol/L (5-15) Blood Urea Nitrogen 10 mg/dL (7-18) Creatinine 0.6 MG/DL (0.55-1.30) Estimat Glomerular Filtration Rate > 60 mL/min (>60) Glucose Level 83 MG/DL (74-106) Calcium Level 8.6 MG/DL (8.5-10.1) Height (Feet): 5 Height (Inches): 6.00 Weight (Pounds): 117 General Appearance: WD/WN, no apparent distress, alert Cardiovascular: normal rate Respiratory/Chest: normal breath sounds, no respiratory distress Abdominal Exam: normal bowel sounds, non tender, soft Extremities: normal range of motion, non-tender Olivier Vicente NP Jan 26, 2019 12:56
--- NOTE | 2019-01-26 13:20 | Surgery Progress Note ---
Surgery Progress Note Subjective Symptoms: improved, tolerating diet, voiding well, passing flatus Additional Comments MRI noted exam stable labs okay improved unfortunately no clear etiology of what patient is feeling as MRI /CT without acute finding, labs stable without signs of infection, and exam fairly benign yet complaint of pain significant Objective Last 24 Hour Vital Signs Date Time Temp Pulse Resp B/P (MAP) Pulse Ox O2 Delivery O2 Flow Rate FiO2 01/26/19 13:15 97 104/66 (79) 01/26/19 12:00 97.9 90 17 195/44 (94) 97 01/26/19 09:00 Room Air 01/26/19 08:00 98.2 70 19 110/81 (91) 98 01/26/19 04:00 98.2 69 18 91/60 (70) 98 01/26/19 00:00 98.1 70 20 90/60 (70) 98 01/25/19 21:00 Room Air 01/25/19 20:47 98.4 01/25/19 20:00 98.4 85 18 98/55 (69) 98 01/25/19 17:42 98.6 01/25/19 16:00 98.6 88 20 115/57 (76) 99 01/25/19 14:49 98.3 I&O Intake and Output 01/25/19 01/26/19 19:00 07:00 Intake Total 480 ml Balance 480 ml Intake Oral 480 ml # Voids 3 2 Cardiovascular: RSR Respiratory: clear Abdomen: soft, flat, tenderness - complaint , present bowel sounds Extremities: no edema, no tenderness, no cyanosis Laboratory Tests Test 01/25/19 18:50 01/26/19 06:15 Chlamydia trachomatis RNA Pending Neisseria gonorrhoeae RNA Pending White Blood Count 8.3 K/UL (4.8-10.8) Red Blood Count 4.35 M/UL (4.20-5.40) Hemoglobin 13.1 G/DL (12.0-16.0) Hematocrit 37.0 % (37.0-47.0) Mean Corpuscular Volume 85 FL (80-99) Mean Corpuscular Hemoglobin 30.1 PG (27.0-31.0) Mean Corpuscular Hemoglobin Concent 35.3 G/DL (32.0-36.0) Red Cell Distribution Width 11.9 % (11.6-14.8) Platelet Count 233 K/UL (150-450) Mean Platelet Volume 4.8 FL (6.5-10.1) L Neutrophils (%) (Auto) 50.0 % (45.0-75.0) Lymphocytes (%) (Auto) 35.8 % (20.0-45.0) Monocytes (%) (Auto) 10.6 % (1.0-10.0) H Eosinophils (%) (Auto) 2.5 % (0.0-3.0) Basophils (%) (Auto) 1.1 % (0.0-2.0) Sodium Level 141 MMOL/L (136-145) Potassium Level 3.5 MMOL/L (3.5-5.1) Chloride Level 106 MMOL/L (98-107) Carbon Dioxide Level 26 MMOL/L (21-32) Anion Gap 9 mmol/L (5-15) Blood Urea Nitrogen 10 mg/dL (7-18) Creatinine 0.6 MG/DL (0.55-1.30) Estimat Glomerular Filtration Rate > 60 mL/min (>60) Glucose Level 83 MG/DL (74-106) Calcium Level 8.6 MG/DL (8.5-10.1) Plan Problems: (1) Abdominal pain Assessment & Plan: This is a 23-year-old female presenting with worsening abdominal pain. Began 5 days ago with low pelvic pain and became excruciating right lower quadrant pain. Nausea vomiting subjective fevers. Labs okay. CT noted personally reviewed by myself. Based on clinical history alone strong suspicion for acute appendicitis but based on laboratory and CT findings there is no clear evidence identified patient actually having appendicitis. Furthermore her exam is fairly unreliable as patient based on clinical textbook describes pain in the manner that it should be but exam begins prior to true examination beginning. Furthermore when patient is sitting resting and having a conversation she is able to move without as much discomfort as when discussing examination where even with the slightest turns she exhibits excruciating pain. Though I am not saying patient is malingering there is definitely potential other etiology of pain. Diet as tolerated IV fluids Continue antibiotics for the time being Inflammatory markers all normal CT/MRI okay exam benign overall okay to d/c with outpatient f/u from surgical standpoint We will follow with recommendations Thank you for allowing me participation's care Master Doe Jan 26, 2019 13:20
--- NOTE | 2019-01-26 14:19 | NUR ---
*-* INSURANCE *-* UPDATED AVAILABLE CLINICALS HAVE BEEN FAXED TO: [employer]# [id number] /PENDING NCM: TERRIE Smith- [phone]...REVIEW/CLINICAL Addendum: 01/26/19 at 1438 by MARCIANO SINGLETARY CM CALLED NCM:TERRIE JIMENEZ TO CALL ME TO CONFIRM SHE HAS BEEN RECEIVING CLINICALS
[2019-01-26] MEDS: Hydromorphone 0.5mg/0.5ml inj IVP PRN ×2 (14:50→18:12)
--- NOTE | 2019-01-26 15:45 | NUR ---
NURSE NOTES: RN SPOKE TO ARTEM, FLIGHT DIRECTOR, REGARDING DISCHARGE. RN EXPLAINED TO ARTEM, PT CANNOT LEAVE BY BUS DUE TO PAIN AND WEAKNESS DUE TO PAIN. NEEDS ASSIST OF ANOTHER FOR DISCHARGE. PT'S FRIEND CAYLA TO ASSIST PT HOME. PER ARTEM, PT NEEDED TO BE DISCHARGED EARLIER BECAUSE DISCHARGE DAY DOES NOT COVER PT'S STAY. RN EXPLAINED IT WAS UNSAFE TO DISCHARGE PT BY BUS.
--- NOTE | 2019-01-26 16:15 | NUR ---
NURSE NOTES: PT FOUND ON BATHROOM FLOOR AT 1600HRS. PT STATES SHE WAS TAKING A SHOWER AND SHE TOOK A MISSTEP AND FELL ON THE FLOOR. PT STATES SHE HIT HER HEAD ON THE WALL WHEN FALLING AND THINKS SHE SUFFERED A SMALL SEIZURE. RN AND COPY MANAGER HELPED PT AMBULATE TO HER BED. PT HAS FULL RANGE OF MOTION OF ALL EXTREMITIES. VITAL SIGNS STABLE. PT HAS NO BRUISES OR ABRASIONS. PT HAS REDNESS ON RIGHT LATERAL HEAD. RN MADE DR DICKEY AWARE OF UNWITNESSED FALL, HIT HEAD ON WALL, AND PT STATES SHE HAD A SEIZURE, CURRENTLY ON [place]. PER DR DICKEY, IF PT'S VITALS ARE STABLE, PT MAY BE DISCHARGED HOME TODAY. RN RECOMMENDED XRAY OR CT OF HEAD, BUT NO NEW ORDERS RECEIVED. PT MADE AWARE OF DR DICKEY'S ORDERS AND PER PT, HER FRIEND CAYLA WILL PICK HER UP LATER TODAY. PT IS ALERT AND ORIENTED X4 AND ABLE TO FOLLOW COMMANDS. RN RE-EDUCATED PT ON FALL/SAFETY PRECAUTIONS AND NOT TO AMBULATE INDEPENDENTLY. PT VERBALIZED UNDERSTANDING.
--- NOTE | 2019-01-26 16:30 | Consultation ---
DATE OF CONSULTATION: 01/26/2019 HISTORY OF PRESENT ILLNESS: This is a 23-year-old female, who was admitted to the hospital with abdominal pain. The patient has a history of metastatic ovarian carcinoma. She presented with right lower quadrant pain. She was admitted to outside hospital with pancreatitis. She was seen and worked up in the hospital by GI, Hematology/Oncology as well as Neurosurgery. All workup including MRI of the abdomen is negative for any pathology. PAST MEDICAL HISTORY: 1. Ovarian carcinoma with known metastasis. 2. Seizure disorder. ALLERGIES: Ketamine and morphine. 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 She is single, has no kids, . REVIEW OF SYSTEMS: Denies any headaches, hematemesis, melena, hematochezia, night sweats, or weight loss. PHYSICAL EXAMINATION: GENERAL: Reveals a young female. HEENT: Unremarkable. LUNGS: Clear breath sounds bilaterally ABDOMEN: Soft. NEUROLOGIC: Nonfocal. LABORATORY AND DIAGNOSTIC DATA: Laboratory testing is unremarkable. IMPRESSION: 1. Abdominal pain, unexplained. 2. Metastatic ovarian carcinoma. 3. Seizure. DISCUSSION: At this time, I have discussed the care with general surgery and GI. No etiology has been found for her pain. She was recently admitted to an outside hospital for similar problem. At this point, I will discharge her on p.o. Diboll and will follow up with regular physician at [facility] or [facility]. Fer Balderas M.D. DR: Jesus JOB#: [id number] CC:
--- NOTE | 2019-01-26 19:30 | NUR ---
NURSE NOTES: Pt verbalized that she is not feeling well to go back home since she just experienced seizure and fall this afternoon. Also, she still is experiencing abdominal pain. Called Dr. Balderas to let him know that the pt is not feeling well. Dr. Balderas is aware about the pt's condition. Will continue to monitor.
--- NOTE | 2019-01-26 19:38 | NUR ---
HAND-OFF: Report given to Neel EDEN RN.
[2019-01-26] MEDS: TraZODone HCl 25 mg tablet ORAL SCH (20:15)
[2019-01-27] VITALS (7 sets, daily range): BP systolic 105–113; BP diastolic 61–73
--- NOTE | 2019-01-27 06:57 | NUR ---
HAND-OFF: Report given to YOVANI Last. Pt is in stable condition.
[2019-01-27 07:15] LABS: ANION GAP 9 mmol/L (5-15); BLOOD UREA NITROGEN 11 mg/dL (7-18); CALCIUM 8.9 MG/DL (8.5-10.1); CARBON DIOXIDE 27 MMOL/L (21-32); CHLORIDE 105 MMOL/L (98-107); CREATININE 0.7 MG/DL (0.55-1.30); POTASSIUM 3.6 MMOL/L (3.5-5.1); SODIUM 141 MMOL/L (136-145)
[2019-01-27 07:17] LABS: BASOPHILS % (AUTO) 1.1 % (0.0-2.0); EOSINOPHILS % (AUTO) 2.1 % (0.0-3.0); HEMATOCRIT 41.3 % (37.0-47.0); HEMOGLOBIN 14.4 G/DL (12.0-16.0); LYMPHOCYTES % (AUTO) 35.3 % (20.0-45.0); MEAN CORPUSCULAR VOLUME 86 FL (80-99); MONOCYTES % (AUTO) 9.5 % (1.0-10.0); NEUTROPHILS % (AUTO) 52.1 % (45.0-75.0); PLATELET COUNT 217 K/UL (150-450); RED BLOOD COUNT 4.81 M/UL (4.20-5.40); RED CELL DISTRIBUTION WIDTH 11.5 % (11.6-14.8); WHITE BLOOD COUNT 9.4 K/UL (4.8-10.8)
[2019-01-27] MEDS: carBAMazepine 200mg tab ORAL SCH ×2 (08:06→17:34)
[2019-01-27] MEDS: Enoxaparin 40mg Inj SUBQ SCH (08:08)
[2019-01-27] MEDS: Metoclopramide 10mg/2ml Inj IVP PRN ×2 (09:32→16:56)
[2019-01-27] MEDS: Hydromorphone 0.5mg/0.5ml inj IVP PRN (09:33)
--- NOTE | 2019-01-27 10:00 | NUR ---
NURSE NOTES: DR DICKEY ROUNDING AND MADE AWARE PT WAS UNABLE TO GO HOME YESTERDAY DUE TO FRIEND NOT ABLE TO OCCUPATIONAL THER PT. PT CONTINUES TO REQUEST PRN REGLAN AND PRN PAIN MEDICATIONS FOR SEVERE PAIN. PER DR DICKEY, OK LONG PT LEAVES TONIGHT. PER PT, HER FRIEND CAYLA WILL PICK HER UP AROUND 5:30-6:00PM.
--- NOTE | 2019-01-27 10:09 | General Progress Note ---
Assessment/Plan Problem List: (1) Primary cancer of ovary with widespread metastatic disease ICD Codes: C56.9 - Malignant neoplasm of unspecified ovary; C80.0 - Disseminated malignant neoplasm, unspecified SNOMED: 546729406 (2) Ovarian cancer ICD Codes: C56.9 - Malignant neoplasm of unspecified ovary SNOMED: 139055851 (3) Abdominal pain ICD Codes: R10.9 - Unspecified abdominal pain SNOMED: 06300288 Qualifiers: Qualified Codes: R10.30 - Lower abdominal pain, unspecified Status: unchanged Assessment/Plan: possible central cause (brain mets) for N/V CT reviewed labs reviewed surg in put appreciated reglan and zofran PRN pending possible discharge for today and fu oncology as out patent Subjective ROS Limited/Unobtainable: Yes Allergies: Coded Allergies: KETAMINE (Verified Allergy, Unknown, 01/22/19) MORPHINE (Verified Allergy, Unknown, 01/22/19) Objective Last 24 Hour Vital Signs Date Time Temp Pulse Resp B/P (MAP) Pulse Ox O2 Delivery O2 Flow Rate FiO2 01/27/19 09:00 Room Air 01/27/19 08:30 98.2 83 16 113/71 (85) 100 01/27/19 08:07 98.2 83 16 113/71 (85) 100 01/27/19 08:00 98.2 83 16 113/71 (85) 100 01/27/19 04:00 98.1 71 20 109/65 (80) 99 01/27/19 00:00 98.4 83 20 110/61 (77) 98 01/26/19 22:20 98.3 86 18 103/68 (80) 97 01/26/19 22:05 98.4 01/26/19 21:20 98.4 89 17 105/70 (82) 99 01/26/19 21:00 Room Air 01/26/19 20:20 98.4 83 18 100/65 (77) 96 01/26/19 19:20 98.7 85 20 105/64 (78) 98 01/26/19 18:20 98.2 98 16 102/66 (78) 97 01/26/19 17:45 97.9 99 18 117/76 (90) 94 01/26/19 17:05 98.2 94 18 104/62 (76) 98 01/26/19 16:45 98.1 96 17 104/64 (77) 96 01/26/19 16:30 98.2 95 20 101/66 (78) 97 01/26/19 16:10 97.7 97 16 118/75 (89) 97 01/26/19 13:15 97 104/66 (79) 01/26/19 12:00 97.9 90 17 195/44 (94) 97 Intake and Output 01/26/19 01/27/19 18:59 06:59 Intake Total 800 ml Balance 800 ml Intake Oral 800 ml # Voids 5 1 Laboratory Tests 01/27/19 06:10: White Blood Count 9.4, Red Blood Count 4.81, Hemoglobin 14.4, Hematocrit 41.3, Mean Corpuscular Volume 86, Mean Corpuscular Hemoglobin 29.8, Mean Corpuscular Hemoglobin Concent 34.7, Red Cell Distribution Width 11.5L, Platelet Count 217, Mean Platelet Volume 4.6L, Neutrophils (%) (Auto) 52.1, Lymphocytes (%) (Auto) 35.3, Monocytes (%) (Auto) 9.5, Eosinophils (%) (Auto) 2.1, Basophils (%) (Auto ) 1.1, Sodium Level 141, Potassium Level 3.6, Chloride Level 105, Carbon Dioxide Level 27, Anion Gap 9, Blood Urea Nitrogen 11, Creatinine 0.7, Estimat Glomerular Filtration Rate > 60, Glucose Level 85, Calcium Level 8.9 Height (Feet): 5 Height (Inches): 6.00 Weight (Pounds): 116 General Appearance: alert EENT: normal ENT inspection Neck: supple Cardiovascular: normal rate Respiratory/Chest: decreased breath sounds Abdomen: normal bowel sounds, non tender, soft Extremities: non-tender Laurent Damon MD Jan 27, 2019 10:09
--- NOTE | 2019-01-27 12:00 | Pulmonology Progress Note ---
Assessment/Plan Assessment/Plan IMPRESSION: 1. Abdominal pain, unexplained. 2. Metastatic ovarian carcinoma. 3. Seizure. DISCUSSION: At this time, I have discussed the care with general surgery and GI. No etiology has been found for her pain. She was recently admitted to an outside hospital for similar problem. Did not dc yesterday due to fall in bathroom; no injuriues. I will discharge her on p.o. Bertram and will follow up with regular physician at [facility] or [facility]. Fer Balderas M.D. Subjective Interval Events: None new; did not go home yesterday due to lack of transportation and fall Constitutional: Reports: no symptoms HEENT: Repors: no symptoms Respiratory: Reports: no symptoms Cardiovascular: Reports: no symptoms Allergies: Coded Allergies: KETAMINE (Verified Allergy, Unknown, 01/22/19) MORPHINE (Verified Allergy, Unknown, 01/22/19) Objective Last 24 Hour Vital Signs Date Time Temp Pulse Resp B/P (MAP) Pulse Ox O2 Delivery O2 Flow Rate FiO2 01/27/19 11:30 Room Air 01/27/19 09:00 Room Air 01/27/19 08:30 98.2 83 16 113/71 (85) 100 01/27/19 08:07 98.2 83 16 113/71 (85) 100 01/27/19 08:00 98.2 83 16 113/71 (85) 100 01/27/19 04:00 98.1 71 20 109/65 (80) 99 01/27/19 00:00 98.4 83 20 110/61 (77) 98 01/26/19 22:20 98.3 86 18 103/68 (80) 97 01/26/19 22:05 98.4 01/26/19 21:20 98.4 89 17 105/70 (82) 99 01/26/19 21:00 Room Air 01/26/19 20:20 98.4 83 18 100/65 (77) 96 01/26/19 19:20 98.7 85 20 105/64 (78) 98 01/26/19 18:20 98.2 98 16 102/66 (78) 97 01/26/19 17:45 97.9 99 18 117/76 (90) 94 01/26/19 17:05 98.2 94 18 104/62 (76) 98 01/26/19 16:45 98.1 96 17 104/64 (77) 96 01/26/19 16:30 98.2 95 20 101/66 (78) 97 01/26/19 16:10 97.7 97 16 118/75 (89) 97 01/26/19 13:15 97 104/66 (79) 01/26/19 12:00 97.9 90 17 195/44 (94) 97 Intake and Output 01/26/19 01/27/19 18:59 06:59 Intake Total 800 ml Balance 800 ml Intake Oral 800 ml # Voids 5 1 General Appearance: no acute distress HEENT: normocephalic Respiratory/Chest: chest wall non-tender, lungs clear Cardiovascular: normal peripheral pulses Abdomen: normal bowel sounds Laboratory Tests 01/27/19 06:10: White Blood Count 9.4, Red Blood Count 4.81, Hemoglobin 14.4, Hematocrit 41.3, Mean Corpuscular Volume 86, Mean Corpuscular Hemoglobin 29.8, Mean Corpuscular Hemoglobin Concent 34.7, Red Cell Distribution Width 11.5L, Platelet Count 217, Mean Platelet Volume 4.6L, Neutrophils (%) (Auto) 52.1, Lymphocytes (%) (Auto) 35.3, Monocytes (%) (Auto) 9.5, Eosinophils (%) (Auto) 2.1, Basophils (%) (Auto ) 1.1, Sodium Level 141, Potassium Level 3.6, Chloride Level 105, Carbon Dioxide Level 27, Anion Gap 9, Blood Urea Nitrogen 11, Creatinine 0.7, Estimat Glomerular Filtration Rate > 60, Glucose Level 85, Calcium Level 8.9 Current Medications Medications (Trade) Dose Ordered Sig/Enrique Route PRN Reason Start Time Stop Time Status Last Admin Dose Admin Carbamazepine (TEGretol) 200 mg BID ORAL 01/23/19 09:00 02/22/19 08:59 01/27/19 08:06 Dexamethasone (Decadron) 2 mg DAILY ORAL 01/23/19 09:00 02/22/19 08:59 01/27/19 08:06 Enoxaparin Sodium (Lovenox) 40 mg DAILY SUBQ 01/26/19 09:00 02/25/19 08:59 01/26/19 08:25 Hydromorphone HCl (Dilaudid) 0.5 mg Q3H PRN IVP breakthrough pain 01/25/19 13:30 02/01/19 13:29 01/27/19 09:33 Ketorolac Tromethamine (Toradol 30mg) 15 mg Q6H PRN IV Severe Breakthru Pain (>7) 01/24/19 17:00 01/27/19 17:00 01/26/19 12:19 Lorazepam (Ativan 2mg/ml 1ml) 0.5 mg Q6H PRN IV For Anxiety 01/25/19 15:15 02/01/19 15:14 01/26/19 18:54 Metoclopramide HCl (Reglan) 10 mg Q6H PRN IVP Nausea & Vomiting 01/22/19 21:45 02/21/19 21:44 01/27/19 09:32 Ondansetron HCl (Zofran) 4 mg Q6H PRN ORAL Nausea & Vomiting 01/22/19 21:45 02/21/19 21:44 Oxycodone/ Acetaminophen (Percocet 10/325) 1 tab Q4H PRN ORAL severe pain 01/25/19 13:33 02/01/19 13:32 01/27/19 08:08 Oxycodone/ Acetaminophen (Percocet 5-325) 1 tab Q4H PRN ORAL PAIN 1-6 01/25/19 13:30 02/01/19 13:29 01/26/19 09:25 Trazodone HCl (Desyrel) 25 mg BEDTIME ORAL 01/23/19 21:00 02/22/19 20:59 01/26/19 20:15 Fer Balderas MD Jan 27, 2019 12:00
[2019-01-27] MEDS ORDERED: HYDROcodone/Acetamin 5/325 tab ORAL PRN (13:30)
[2019-01-27] MEDS ORDERED: oxyCODONE HCL/Acetaminophen 5/325mg ORAL PRN (14:00)
--- NOTE | 2019-01-27 14:27 | Hematology/Onc Progress Note ---
Assessment/Plan Assessment/Plan Assessment and Recs: # Ovarian cancer that is metastatic to the brain as well as local area, imaging has been reviewed, she has been getting chemo at [facility], Dr. Joseph, has had chemo IV and po, most recently has been on everolimus/affinitor, is s/p XRT to the brain , has had a pelvic lymphadenectomy, and lymph node dissection, now p/w worsening abd pain. ct reviewed and only c/f splenomegaly --> Continue f/u with [facility], has had a break in chemo recently, was on affinitor, as at least 2nd line --> clinical trial eval at the [facility], f/u with Dr. Joseph --> is BRCA negative --> with brain mets --> adhesions may involve abdomen -> seen by gi and reg reglan, pain management and colace/senna prn # Abdominal pain --> reviewed gi and surg recs --> may be related to mets, imaging does not seem to show this # Cancer associated pain --> agree with pain control --> stool softeners # Splenomegaly # Dvt ppx ambul The timing of this note does not necessarily reflect the time of the patient was seen. Greatly appreciate consultation. Subjective Constitutional: Denies: no symptoms, chills, fever, malaise, weakness, other HEENT: Denies: no symptoms, eye pain, blurred vision, tearing, double vision, ear pain, ear discharge, nose pain, nose congestion, throat pain, throat swelling, mouth pain, mouth swelling, other Respiratory: Denies: no symptoms, cough, shortness of breath, SOB with excertion, SOB at rest, sputum, wheezing, other Gastrointestinal/Abdominal: Denies: no symptoms, abdomen distended, abdominal pain, black stools, tarry stools, blood in stool, constipated, diarrhea, difficulty swallowing, nausea, poor appetite, poor fluid intake, rectal bleeding , vomiting, other Genitourinary: Denies: no symptoms, burning, discharge, frequency, flank pain, hematuria, incontinence, pain, urgency, other Neurologic/Psychiatric: Denies: no symptoms, anxiety, depressed, emotional problems, headache, numbness, paresthesia, pre-existing deficit, seizure, tingling, tremors, weakness, other Allergies: Coded Allergies: KETAMINE (Verified Allergy, Unknown, 01/22/19) MORPHINE (Verified Allergy, Unknown, 01/22/19) Subjective 01/27: potential dc and no otherwise events, did have small fall, but no seizures last night, to see regular pcp once out, potentially tonight Objective Objective Current Medications Medications (Trade) Dose Ordered Sig/Enrique Route PRN Reason Start Time Stop Time Status Last Admin Dose Admin Acetaminophen/ Hydrocodone Bitart ([place] 5/325) 1 tab Q6H PRN ORAL Mild Pain (Pain Scale 1-3) 01/27/19 13:30 02/03/19 13:29 Carbamazepine (TEGretol) 200 mg BID ORAL 01/23/19 09:00 02/22/19 08:59 01/27/19 08:06 Dexamethasone (Decadron) 2 mg DAILY ORAL 01/23/19 09:00 02/22/19 08:59 01/27/19 08:06 Enoxaparin Sodium (Lovenox) 40 mg DAILY SUBQ 01/26/19 09:00 02/25/19 08:59 01/26/19 08:25 Ketorolac Tromethamine (Toradol 30mg) 15 mg Q6H PRN IV Severe Breakthru Pain (>7) 01/24/19 17:00 01/27/19 17:00 01/26/19 12:19 Lorazepam (Ativan 2mg/ml 1ml) 0.5 mg Q6H PRN IV For Anxiety 01/25/19 15:15 02/01/19 15:14 01/26/19 18:54 Metoclopramide HCl (Reglan) 10 mg Q6H PRN IVP Nausea & Vomiting 01/22/19 21:45 02/21/19 21:44 01/27/19 09:32 Ondansetron HCl (Zofran) 4 mg Q6H PRN ORAL Nausea & Vomiting 01/22/19 21:45 02/21/19 21:44 Oxycodone/ Acetaminophen (Percocet 10/325) 1 tab Q4H PRN ORAL Severe Pain (Pain Scale 7-10) 01/27/19 17:33 02/01/19 13:32 Oxycodone/ Acetaminophen (Percocet 5-325) 1 tab Q4H PRN ORAL Moderate Pain (Pain Scale 4-6) 01/27/19 14:00 02/01/19 13:59 Trazodone HCl (Desyrel) 25 mg BEDTIME ORAL 01/23/19 21:00 02/22/19 20:59 01/26/19 20:15 Last 24 Hour Vital Signs Date Time Temp Pulse Resp B/P (MAP) Pulse Ox O2 Delivery O2 Flow Rate FiO2 01/27/19 12:00 97.9 92 16 105/70 (82) 99 01/27/19 11:30 Room Air 01/27/19 09:00 Room Air 01/27/19 08:30 98.2 83 16 113/71 (85) 100 01/27/19 08:07 98.2 83 16 113/71 (85) 100 01/27/19 08:00 98.2 83 16 113/71 (85) 100 01/27/19 04:00 98.1 71 20 109/65 (80) 99 01/27/19 00:00 98.4 83 20 110/61 (77) 98 01/26/19 22:20 98.3 86 18 103/68 (80) 97 01/26/19 22:05 98.4 01/26/19 21:20 98.4 89 17 105/70 (82) 99 01/26/19 21:00 Room Air 01/26/19 20:20 98.4 83 18 100/65 (77) 96 01/26/19 19:20 98.7 85 20 105/64 (78) 98 01/26/19 18:20 98.2 98 16 102/66 (78) 97 01/26/19 17:45 97.9 99 18 117/76 (90) 94 01/26/19 17:05 98.2 94 18 104/62 (76) 98 01/26/19 16:45 98.1 96 17 104/64 (77) 96 01/26/19 16:30 98.2 95 20 101/66 (78) 97 01/26/19 16:10 97.7 97 16 118/75 (89) 97 01/26/19 13:15 97 104/66 (79) 01/26/19 12:00 97.9 90 17 195/44 (94) 97 01/26/19 09:00 Room Air 01/26/19 08:00 98.2 70 19 110/81 (91) 98 01/26/19 04:00 98.2 69 18 91/60 (70) 98 01/26/19 00:00 98.1 70 20 90/60 (70) 98 01/25/19 21:00 Room Air 01/25/19 20:00 98.4 85 18 98/55 (69) 98 01/25/19 17:42 98.6 01/25/19 16:00 98.6 88 20 115/57 (76) 99 01/25/19 14:49 98.3 Intake and Output 01/26/19 01/27/19 19:00 07:00 Intake Total 800 ml Balance 800 ml Intake Oral 800 ml # Voids 5 1 Labs Test 01/25/19 06:06 01/25/19 18:50 01/26/19 06:15 01/27/19 06:10 White Blood Count 8.5 K/UL (4.8-10.8) 8.3 K/UL (4.8-10.8) 9.4 K/UL (4.8-10.8) Red Blood Count 4.19 M/UL (4.20-5.40) 4.35 M/UL (4.20-5.40) 4.81 M/UL (4.20-5.40) Hemoglobin 12.6 G/DL (12.0-16.0) 13.1 G/DL (12.0-16.0) 14.4 G/DL (12.0-16.0) Hematocrit 35.6 % (37.0-47.0) 37.0 % (37.0-47.0) 41.3 % (37.0-47.0) Mean Corpuscular Volume 85 FL (80-99) 85 FL (80-99) 86 FL (80-99) Mean Corpuscular Hemoglobin 30.2 PG (27.0-31.0) 30.1 PG (27.0-31.0) 29.8 PG (27.0-31.0) Mean Corpuscular Hemoglobin Concent 35.5 G/DL (32.0-36.0) 35.3 G/DL (32.0-36.0) 34.7 G/DL (32.0-36.0) Red Cell Distribution Width 11.7 % (11.6-14.8) 11.9 % (11.6-14.8) 11.5 % (11.6-14.8) Platelet Count 235 K/UL (150-450) 233 K/UL (150-450) 217 K/UL (150-450) Mean Platelet Volume 4.7 FL (6.5-10.1) 4.8 FL (6.5-10.1) 4.6 FL (6.5-10.1) Neutrophils (%) (Auto) 52.1 % (45.0-75.0) 50.0 % (45.0-75.0) 52.1 % (45.0-75.0) Lymphocytes (%) (Auto) 35.6 % (20.0-45.0) 35.8 % (20.0-45.0) 35.3 % (20.0-45.0) Monocytes (%) (Auto) 8.7 % (1.0-10.0) 10.6 % (1.0-10.0) 9.5 % (1.0-10.0) Eosinophils (%) (Auto) 2.4 % (0.0-3.0) 2.5 % (0.0-3.0) 2.1 % (0.0-3.0) Basophils (%) (Auto) 1.1 % (0.0-2.0) 1.1 % (0.0-2.0) 1.1 % (0.0-2.0) Erythrocyte Sedimentation Rate 3 MM/HR (0-20) Prothrombin Time 10.1 SEC (9.30-11.50) Prothromb Time International Ratio 0.9 (0.9-1.1) Activated Partial Thromboplast Time 26 SEC (23-33) Sodium Level 142 MMOL/L (136-145) 141 MMOL/L (136-145) 141 MMOL/L (136-145) Potassium Level 3.0 MMOL/L (3.5-5.1) 3.5 MMOL/L (3.5-5.1) 3.6 MMOL/L (3.5-5.1) Chloride Level 106 MMOL/L (98-107) 106 MMOL/L (98-107) 105 MMOL/L (98-107) Carbon Dioxide Level 26 MMOL/L (21-32) 26 MMOL/L (21-32) 27 MMOL/L (21-32) Anion Gap 10 mmol/L (5-15) 9 mmol/L (5-15) 9 mmol/L (5-15) Blood Urea Nitrogen 8 mg/dL (7-18) 10 mg/dL (7-18) 11 mg/dL (7-18) Creatinine 0.6 MG/DL (0.55-1.30) 0.6 MG/DL (0.55-1.30) 0.7 MG/DL (0.55-1.30) Estimat Glomerular Filtration Rate > 60 mL/min (>60) > 60 mL/min (>60) > 60 mL/min (>60) Glucose Level 78 MG/DL (74-106) 83 MG/DL (74-106) 85 MG/DL (74-106) Calcium Level 8.5 MG/DL (8.5-10.1) 8.6 MG/DL (8.5-10.1) 8.9 MG/DL (8.5-10.1) Magnesium Level 2.1 MG/DL (1.8-2.4) Total Bilirubin 0.5 MG/DL (0.2-1.0) Aspartate Amino Transf (AST/SGOT) 13 U/L (15-37) Alanine Aminotransferase (ALT/SGPT) 14 U/L (12-78) Alkaline Phosphatase 62 U/L (46-116) C-Reactive Protein, Quantitative < 0.4 mg/dL (0.00-0.90) Total Protein 6.6 G/DL (6.4-8.2) Albumin 3.6 G/DL (3.4-5.0) Globulin 3.0 g/dL Albumin/Globulin Ratio 1.2 (1.0-2.7) Amylase Level 43 U/L (25-115) Lipase 123 U/L (73-393) Chlamydia trachomatis RNA Negative (Negative) Neisseria gonorrhoeae RNA Negative (Negative) Height (Feet): 5 Height (Inches): 6.00 Weight (Pounds): 116 Objective PE: Vitals: reviewed General Appearance: NAD HEENT: normocephalic, atraumatic Neck: non-tender, normal alignment Respiratory/Chest: normal breath sounds bilaterally Cardiovascular/Chest: normal peripheral pulses, normal rate Abdomen: normal bowel sounds, soft, nontender, neg mcburneys point Extremities: normal range of motion Jacob Irizarry MD Jan 27, 2019 14:27
--- NOTE | 2019-01-27 15:27 | NUR ---
*-* INSURANCE *-* UPDATED AVAILABLE CLINICALS HAVE BEEN FAXED TO: [facility]# [id number] /PENDING NCM: TERRIE P- [phone]...REVIEW/CLINICAL Addendum: 01/27/19 at 1531 by MARCIANO SINGLETARY CM CALLED [facility] FOR TERRIE TO CALL ME TO CONFIRM SHE HAS BEEN RECEIVING CLINICALS.
--- NOTE | 2019-01-27 18:38 | NUR ---
NURSE NOTES: PT'S FRIEND CAYLA AT BEDSIDE AND PT GETTING READY TO BE DISCHARGED. IV ACCESS DISCONTINUED. PT EDUCATED ON [facility] PRESCRIPTION AND DISCHARGE PACKET. BELONGINGS CHECKED AT BEDSIDE, AND ALL ACCOUNTED.
--- NOTE | 2019-01-27 19:00 | NUR ---
NURSE NOTES: PT AND PT'S FRIEND MADE RN AWARE THAT CAYLA IS NOW UNABLE TO TAKE PT HOME BECAUSE SHE IS RUNNING LATE FOR CLASS. PT AGREED TO TAKE TAXI VOUCHER TO A MUTUAL FRIEND'S HOME AT [address] [place] [address]. PER PT, SHE WILL TAKE UBER FROM THERE TO GO HOME. IV ACCESS DISCONTINUED AND ALL BELONGINGS ACCOUNTED AT BEDSIDE. RN OBTAINED TAXI VOUCHER FROM NURSE FEATHER SAWYER. DISCHARGE ENDORSED TO YOVANI MADERA, AND TAXI VOUCHER GIVEN TO RN. PT AGREES TO DISCHARGE VIA TAXI. Addendum: 01/27/19 at 1941 by EMMANUELLE PAYNE RN RN DISCHARGE ENDORSED TO YOVANI DELAROSA
--- NOTE | 2019-01-27 19:41 | NUR ---
HAND-OFF: Report given to YOVANI DELAROSA.
--- NOTE | 2019-01-27 19:48 | NUR ---
NURSE NOTES: Received a report from YOVANI Last. Pt is alert, oriented and in stable condition. Called cab @ 19:36 and waiting for cab. Belongings list verified and signed by pt. Bed in lowest position. Bed alarm is on. Call light within reach. Will continue to monitor.
--- NOTE | 2019-01-27 20:33 | Surgery Progress Note ---
Surgery Progress Note Subjective Additional Comments No acute events. Tolerating diet. Pending discharge. Objective Last 24 Hour Vital Signs Date Time Temp Pulse Resp B/P (MAP) Pulse Ox O2 Delivery O2 Flow Rate FiO2 01/27/19 15:52 98.3 95 16 108/73 (85) 97 01/27/19 12:00 97.9 92 16 105/70 (82) 99 01/27/19 11:30 Room Air 01/27/19 09:00 Room Air 01/27/19 08:30 98.2 83 16 113/71 (85) 100 01/27/19 08:07 98.2 83 16 113/71 (85) 100 01/27/19 08:00 98.2 83 16 113/71 (85) 100 01/27/19 04:00 98.1 71 20 109/65 (80) 99 01/27/19 00:00 98.4 83 20 110/61 (77) 98 01/26/19 22:20 98.3 86 18 103/68 (80) 97 01/26/19 22:05 98.4 01/26/19 21:20 98.4 89 17 105/70 (82) 99 01/26/19 21:00 Room Air I&O Intake and Output 01/26/19 01/27/19 19:00 07:00 Intake Total 800 ml Balance 800 ml Intake Oral 800 ml # Voids 5 1 Cardiovascular: RSR Respiratory: clear Abdomen: soft, tenderness, present bowel sounds, non-distended Extremities: no tenderness, no cyanosis Laboratory Tests Test 01/27/19 06:10 White Blood Count 9.4 K/UL (4.8-10.8) Red Blood Count 4.81 M/UL (4.20-5.40) Hemoglobin 14.4 G/DL (12.0-16.0) Hematocrit 41.3 % (37.0-47.0) Mean Corpuscular Volume 86 FL (80-99) Mean Corpuscular Hemoglobin 29.8 PG (27.0-31.0) Mean Corpuscular Hemoglobin Concent 34.7 G/DL (32.0-36.0) Red Cell Distribution Width 11.5 % (11.6-14.8) L Platelet Count 217 K/UL (150-450) Mean Platelet Volume 4.6 FL (6.5-10.1) L Neutrophils (%) (Auto) 52.1 % (45.0-75.0) Lymphocytes (%) (Auto) 35.3 % (20.0-45.0) Monocytes (%) (Auto) 9.5 % (1.0-10.0) Eosinophils (%) (Auto) 2.1 % (0.0-3.0) Basophils (%) (Auto) 1.1 % (0.0-2.0) Sodium Level 141 MMOL/L (136-145) Potassium Level 3.6 MMOL/L (3.5-5.1) Chloride Level 105 MMOL/L (98-107) Carbon Dioxide Level 27 MMOL/L (21-32) Anion Gap 9 mmol/L (5-15) Blood Urea Nitrogen 11 mg/dL (7-18) Creatinine 0.7 MG/DL (0.55-1.30) Estimat Glomerular Filtration Rate > 60 mL/min (>60) Glucose Level 85 MG/DL (74-106) Calcium Level 8.9 MG/DL (8.5-10.1) Plan Problems: (1) Abdominal pain Assessment & Plan: This is a 23-year-old female presenting with worsening abdominal pain. Began 5 days ago with low pelvic pain and became excruciating right lower quadrant pain. Nausea vomiting subjective fevers. Labs okay. CT noted personally reviewed by myself. Based on clinical history alone strong suspicion for acute appendicitis but based on laboratory and CT findings there is no clear evidence identified patient actually having appendicitis. Furthermore her exam is fairly unreliable as patient based on clinical textbook describes pain in the manner that it should be but exam begins prior to true examination beginning. Furthermore when patient is sitting resting and having a conversation she is able to move without as much discomfort as when discussing examination where even with the slightest turns she exhibits excruciating pain. Though I am not saying patient is malingering there is definitely potential other etiology of pain. Diet as tolerated IV fluids Continue antibiotics for the time being Inflammatory markers all normal CT/MRI okay exam benign overall okay to d/c with outpatient f/u from surgical standpoint We will follow with recommendations Thank you for allowing me participation's care Master Doe Jan 27, 2019 20:33
--- NOTE | 2019-01-27 20:52 | NUR ---
NURSE NOTES: Pt discharged to home. Pt left @ 20:50 on stable condition via taxi. Vitals are stable. IV and ID band removed. Belongings send with the pt.
--- NOTE | 2019-01-28 12:51 | Discharge Summary ---
Discharge Summary Discharge Summary _ DATE OF ADMISSION: 01/22/2019 DATE OF DISCHARGE: 01/27/2019 DISCHARGED BY: Dr. Balderas REASON FOR ADMISSION: 23 years old female with a history of metastatic ovarian cancer since December 2015 and GBM, status post radiation, presented with right lower quadrant pain that started the night prior to presentation to ED. Pain described as 9 out of 10 , with nausea and vomiting, constant, aggravated by movement. Patient under care care of Dr Joseph at [facility] and had been on oral and IV chemotherapy. Most recently she was on everolimus/affinitor, s/p radiation to the brain, she has had a pelvic lymphadenectomy, and lymph node dissection, Laboratory work-up revealed no leukocytosis, stable hemoglobin and hematocrit. Stable electrolytes and renal parameters. Total bilirubin 1.9, direct bilirubin 0.3, stable LFT and lipase . Urine test negative. Urinalysis revealed no evidence of urinary tract infection. Urine toxicology screen was positive for opiates. CT of the abdomen and pelvis revealed splenomegaly , no acute process otherwise. Patient subsequently admitted for further management CONSULTANTS: pulmonary Dr. Balderas internal medicine Dr Olson GI specialist Dr. Damon manager system/oncologist Dr. Irizarry surgery Dr. Doe [facility]RSE: Patient admitted to medical surgical floor . Patient started on IV fluids. Pain management was addressed. Bowel regimen instituted. Patient was followed-up with serial abdominal exams. Oncology , surgery, and GI specialist evaluations were requested. MRI of the abdomen without contrast revealed non-identification of the appendix. No secondary signs of acute appendicitis were identified. Acute appendicitis was doubtful Pelvic transvaginal ultrasound revealed no acute abnormality , no evidence of ovarian torsion. Incidental finding of 16 mm left ovarian hemorrhagic cyst , probably hemorrhagic dominant follicle. Seizure precaution maintained. Patient was continued on Tegretol and dexamethasone. Patient declined CT of the head. No evidence of seizure activity while in the hospital. Per surgeon, abdominal exam was benign . Patient was able to tolerate diet. Inflammatory markers were normal. Pain was controlled. No acute surgical intervention was necessarily. Surgeon recommended discharge patient and follow-up with her outpatient oncologist. GI specialist followed. Antiemetic provided as needed / Reglan and Zofran. Per GI specialist , possible cause for nausea and vomiting could be central due to brain metastasis. Diet was advanced as tolerated. Patient was able to tolerate diet. Potassium was replaced. Oncologist followed. Per oncologist , patient under clinical trials at [facility]. BRCA negative. Patient to follow up with her oncologist as outpatient. Patient clinically stabilized and was discharged on oral [place] . FINAL DIAGNOSES: Abdominal pain Cancer associated pain Ovarian cancer Primary cancer of the ovary with widespread metastatic disease Hypokalemia DISCHARGE MEDICATIONS: See Medication Reconciliation list. DISCHARGE INSTRUCTIONS: Patient was discharged home . Follow up with primary care provider in one week. I have been assigned to dictate discharge summary for this account. I was not involved in the patient's management. Ernestine Gonsales NP Jan 28, 2019 12:51
--- NOTE | 2019-01-29 09:06 | NUR ---
*-* INSURANCE *-* UPDATED AVAILABLE CLINICALS HAVE BEEN FAXED TO: [employer] [facility]AP[facility]# [id number] /PENDING [facility]: [place] P- [phone] F- [phone]...REVIEW/CLINICAL
--- NOTE | 2019-02-03 21:33 | Coder Physician Query ---
Clarification is required for compliance, coding accuracy, and to reflect severity of illness for this patient. Dear Dr. Balderas Date: 02/02/19 REASON FOR ADMISSION: 23 years old female with a history of metastatic ovarian cancer since December 2015 and GBM, status post radiation, presented with right lower quadrant pain that started the night prior to presentation to ED. Pain described as 9 out of 10 , with nausea and vomiting, constant, aggravated by movement. Per GI specialist , possible cause for nausea and vomiting could be central due to brain metastasis. MRI of the abdomen without contrast revealed non-identification of the appendix. No secondary signs of acute appendicitis were identified. Acute appendicitis was doubtful Pelvic transvaginal ultrasound revealed no acute abnormality , no evidence of ovarian torsion. Incidental finding of 16 mm left ovarian hemorrhagic cyst , probably hemorrhagic dominant follicle. Please specify the etiology of Abdominal Pain: [] Constipation [] Diverticulitis, Acute [] CANCER [] GERD [] Peptic Ulcer [] Cholelithiasis [] Cholecystitis [] Cholangitis [] Urinary Tract Infection [] Hernia [] Irritable Bowel Syndrome [] Gastroenteritis [] Gastritis [] Intestinal Obstruction [] Ulcerative Colitis [] Other: [] Clinically Undetermined Physician signature Date Please also document in your Progress Notes and/or Discharge Summary and indicate if the condition was present on admission. MADIE
== END 2019-01-27 20:55 | disposition home or self-care (01) | DRG 251 ==
LOC: EDBD 14:37 → EMR 14:37 → 4E 18:20 → EDBEDREQ 18:33
DX: R10.31 Right lower quadrant pain (principal); C56.9 Malignant neoplasm of unspecified ovary; G89.3 Neoplasm related pain (acute) (chronic); E87.6 Hypokalemia; Z88.6 Allergy status to analgesic agent; Z88.8 Allergy status to other drugs, medicaments and biological substances; C79.31 Secondary malignant neoplasm of brain; C79.89 Secondary malignant neoplasm of other specified sites; Z92.3 Personal history of irradiation; R26.2 Difficulty in walking, not elsewhere classified; R56.9 Unspecified convulsions; R11.2 Nausea with vomiting, unspecified; R16.1 Splenomegaly, not elsewhere classified
CPT/HCPCS: 36415; 74177; 74181; 76830; 76856; 80048; 80053; 80307; 81003; 81025; 82150; 82248; 83690; 83735; 84702; 85025; 85610; 85651; 85730; 86140; 87491; 87590; 96365; 96375; 96376; 99285; J2405; J2765; J8499

== ENCOUNTER 2019-09-29 19:35 | Emergency (ER) | payer MEDICAID ==
[~2019-09-29] VITALS: Ht 167.6 cm; Wt 77.1 kg
[~2019-09-29 19:35] MED LIST: CARBAMAZEPINE200 MG ORAL; DESYREL50 MG ORAL; PERCOCET1 TAB ORAL
[2019-09-29 20:10] VITALS: BP 108/56
[2019-09-29] MEDS ORDERED: Hydromorphone 0.5mg/0.5ml inj IVP ONE (20:30)
[2019-09-29] MEDS ORDERED: Metoclopramide 10mg/2ml Inj IVP ONE (20:30)
[2019-09-29] MEDS ORDERED: DiphenhydrAMINE 50mg/ml Inj IVP ONE (20:30)
[2019-09-29 20:50] LABS: BASOPHILS % (AUTO) 1.4 % (0.0-2.0); EOSINOPHILS % (AUTO) 5.4 % (0.0-3.0); HEMATOCRIT 45.2 % (37.0-47.0); HEMOGLOBIN 14.9 G/DL (12.0-16.0); LYMPHOCYTES % (AUTO) 29.9 % (20.0-45.0); MEAN CORPUSCULAR VOLUME 86 FL (80-99); MONOCYTES % (AUTO) 5.9 % (1.0-10.0); NEUTROPHILS % (AUTO) 57.3 % (45.0-75.0); PLATELET COUNT 338 K/UL (150-450); RED BLOOD COUNT 5.26 M/UL (4.20-5.40); WHITE BLOOD COUNT 7.7 K/UL (4.8-10.8)
[2019-09-29 21:02] LABS: ANION GAP 12 mmol/L (5-15); BLOOD UREA NITROGEN 3 mg/dL (7-18); CALCIUM 8.5 MG/DL (8.5-10.1); CARBON DIOXIDE 26 MMOL/L (21-32); CHLORIDE 107 MMOL/L (98-107); CREATININE 0.8 MG/DL (0.55-1.30); POTASSIUM 3.8 MMOL/L (3.5-5.1); SODIUM 145 MMOL/L (136-145)
[2019-09-29 21:06] LABS: ALANINE AMINOTRANSFERASE 66 U/L (12-78); ALBUMIN 4.5 G/DL (3.4-5.0); ALBUMIN/GLOBULIN RATIO 1.3 (1.0-2.7); ALKALINE PHOSPHATASE 107 U/L (46-116); ASPARTATE AMINO TRANSFERASE 40 U/L (15-37); BILIRUBIN,TOTAL 0.7 MG/DL (0.2-1.0)
--- NOTE | 2019-09-29 22:01 | Emergency Room Report ---
History of Present Illness General Chief Complaint: Abdominal Pain Source: Patient Present Illness HPI Patient has a history of ovarian cancer. Patient presents with severe right lower quadrant abdominal pain. She says is been going on for at least 3 weeks. She is been evaluated in two emergency departments during that time. During 1 of visit she had an ultrasound performed. She stated she had a cysts. She also states they told her her stating there was "nothing wrong". At this time she has been vomiting and unable unable to keep anything down. She denies vomiting blood or coffee grounds. She denies any melena. He has had some loose stools recently. The pain is 10/10, constant, pressure and aching. Patient claims she has a history of ovarian cancer. She states she has had chemotherapy. She states this was under the direction of an urgent care physician who said that her care was beyond the scope of what the urgent care physician could take care of. She is got a recent change in her insurance and is switching to [facility]. No fevers, chills, sore throat, chest pain, palpitations, shortness of breath, joint pain, rashes, depression, anxiety, visual changes, dizziness, headache. This is documentation when she was admitted in December 2018 regarding the cancer : Patient under care care of Dr Joseph at [facility] and had been on oral and IV chemotherapy. Most recently she was on everolimus/affinitor, s/p radiation to the brain, she has had a pelvic lymphadenectomy, and lymph node dissection. Per oncologist , patient under clinical trials at [facility]. BRCA negative. The patient has been admitted for intractable abdominal pain. 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 Now: No Reviewed Nursing Documentation: PMH: Agreed; PSxH: Agreed Nursing Documentation-PMH Hx Cardiac Problems: No Hx Cancer: Yes - ovarian Hx Gastrointestinal Problems: No Hx Neurological Problems: No Hx Seizures: Yes Review of Systems All Other Systems: negative except mentioned in HPI Physical Exam Vital Signs Date Time Temp Pulse Resp B/P (MAP) Pulse Ox O2 Delivery O2 Flow Rate FiO2 09/29/19 20:04 99.1 92 22 108/56 (73) 95 Room Air Sp02 EP Interpretation: reviewed, normal General Appearance: well appearing, no apparent distress, GCS 15 Head: normocephalic, atraumatic Eyes: bilateral eye normal inspection, bilateral eye PERRL, bilateral eye EOMI ENT: dry mucus membranes - Slightly Neck: supple Respiratory: chest non-tender, lungs clear, normal breath sounds Cardiovascular #1: regular rate, rhythm Cardiovascular #2: 2+ radial (R) Gastrointestinal: normal inspection, normal bowel sounds, no mass, non- distended, no rebound, guarding - Minimal, tenderness - Right lower quadrant Genitourinary: no CVA tenderness Musculoskeletal: back normal, normal range of motion, gait/station normal Neurologic: alert, oriented x3, grossly normal Psychiatric: anxious Skin: warm/dry, Ecchymosis/Bruising - From prior blood draws and IV sites Medical Decision Making Diagnostic Impression: Primary Impression: Colitis Additional Impressions: UTI (urinary tract infection) Qualified Codes: N30.00 - Acute cystitis without hematuria Nausea & vomiting Qualified Codes: R11.2 - Nausea with vomiting, unspecified Ovarian cancer Qualified Codes: C56.9 - Malignant neoplasm of unspecified ovary ER Course Patient with history of ovarian cancer presents with right lower quadrant pain and vomiting which is severe. Differential includes appendicitis, pain from ovarian cancer, colitis, pain seeking behavior, urinary tract infection, pyelonephritis, diverticulitis amongst others. With history ovarian cancer this is a very complex patient. Evaluation with CT abdomen and labs. Treatment with IV hydration, Reglan, Benadryl and Dilaudid. Serial exams will be undertaken. Labs with normal white count and H&H. CMP unremarkable. Urinalysis with pyuria. Rocephin ordered for pyuria. CT abdomen and pelvis suggest colitis and possible inflammatory changes around the gallbladder. Interpretation of these findings in light of other labs suggest the possibility of radiation colitis versus acute colitis. The gallbladder is not involved based on her physical exam and labs. The patient was observed with eyes closed and calm after medication administration. Repeat exam without guarding or rebound. Long discussion with patient regarding results. Discussed treatment plan with patient. She states she is going to be following up with a pain specialist as well as [facility] for following her ovarian cancer. The patient was advised that she is being observed at home. Discussion of discharge medication was agreed upon. Patient markedly improved and stable for discharge and outpatient observation and treatment. Laboratory Tests Test 09/29/19 20:35 09/29/19 22:30 White Blood Count 7.7 K/UL (4.8-10.8) Red Blood Count 5.26 M/UL (4.20-5.40) Hemoglobin 14.9 G/DL (12.0-16.0) Hematocrit 45.2 % (37.0-47.0) Mean Corpuscular Volume 86 FL (80-99) Mean Corpuscular Hemoglobin 28.4 PG (27.0-31.0) Mean Corpuscular Hemoglobin Concent 33.0 G/DL (32.0-36.0) Red Cell Distribution Width 13.0 % (11.6-14.8) Platelet Count 338 K/UL (150-450) Mean Platelet Volume 5.9 FL (6.5-10.1) L Neutrophils (%) (Auto) 57.3 % (45.0-75.0) Lymphocytes (%) (Auto) 29.9 % (20.0-45.0) Monocytes (%) (Auto) 5.9 % (1.0-10.0) Eosinophils (%) (Auto) 5.4 % (0.0-3.0) H Basophils (%) (Auto) 1.4 % (0.0-2.0) Prothrombin Time 11.5 SEC (9.30-11.50) Prothrombin Time INR 1.0 (0.9-1.1) Activated Partial Thromboplast Time 26 SEC (23-33) Sodium Level 145 MMOL/L (136-145) Potassium Level 3.8 MMOL/L (3.5-5.1) Chloride Level 107 MMOL/L (98-107) Carbon Dioxide Level 26 MMOL/L (21-32) Anion Gap 12 mmol/L (5-15) Blood Urea Nitrogen 3 mg/dL (7-18) L Creatinine 0.8 MG/DL (0.55-1.30) Estimated Glomerular Filtration Rate > 60 mL/min (>60) Glucose Level 103 MG/DL (74-106) Calcium Level 8.5 MG/DL (8.5-10.1) Total Bilirubin 0.7 MG/DL (0.2-1.0) Aspartate Amino Transferase (AST) 40 U/L (15-37) H Alanine Aminotransferase (ALT) 66 U/L (12-78) Alkaline Phosphatase 107 U/L (46-116) Total Protein 8.0 G/DL (6.4-8.2) Albumin 4.5 G/DL (3.4-5.0) Globulin 3.5 g/dL Albumin/Globulin Ratio 1.3 (1.0-2.7) Lipase 141 U/L (73-393) Human Chorionic Gonadotropin, Qual Negative (NEGATIVE) Urine Color Pale yellow Urine Appearance Clear Urine pH 6 (4.5-8.0) Urine Specific [place] 1.015 (1.005-1.035) Urine Protein Negative (NEGATIVE) Urine Glucose (UA) Negative (NEGATIVE) Urine Ketones Negative (NEGATIVE) Urine Blood Negative (NEGATIVE) Urine Nitrite Negative (NEGATIVE) Urine Bilirubin Negative (NEGATIVE) Urine Urobilinogen Normal MG/DL (0.0-1.0) Urine Leukocyte Esterase 1+ (NEGATIVE) H Urine RBC 0 /HPF (0 - 2) Urine WBC 10-15 /HPF (0 - 2) H Urine Squamous Epithelial Cells Many /LPF (NONE/OCC) H Urine Bacteria Moderate /HPF (NONE) H Urine Mucus Many /LPF (NONE/OCC) H Urine Opiates Screen Positive (NEGATIVE) H Urine Barbiturates Screen Negative (NEGATIVE) Phencyclidine (PCP) Screen Negative (NEGATIVE) Urine Amphetamines Screen Negative (NEGATIVE) Urine Benzodiazepines Screen Negative (NEGATIVE) Urine Cocaine Screen Negative (NEGATIVE) Urine Marijuana (THC) Screen Negative (NEGATIVE) CT/MRI/US Diagnostic Results CT/MRI/US Diagnostic Results : Imaging Test Ordered: abd/pelvis Impression Probable right-sided colitis. There is suspected secondary inflammation of the gallbladder. Last Vital Signs Date Time Temp Pulse Resp B/P (MAP) Pulse Ox O2 Delivery O2 Flow Rate FiO2 09/30/19 00:00 98.9 78 16 106/65 98 Room Air Status: improved Disposition: HOME, SELF-CARE Condition: Improved Scripts Nitrofurantoin Monohyd/M-Cryst* (MACROBID 100 MG*) 100 Mg Capsule 100 MG ORAL EVERY 12 HOURS, #14 CAP Prov: Cristopher Sal MD 09/29/19 Acetaminophen With Codeine (T#3) (TYLENOL #3 TAB*) Y Tab 1 TAB ORAL Q8H PRN for For Pain, #8 TAB Prov: Cristopher Sal MD 09/29/19 Promethazine HCl (Promethegan) 25 Mg Supp.rect 25 MG RECTAL Q8HR PRN for Nausea & Vomiting, #6 SUPP 1 Refill Prov: Cristopher Sal MD 09/29/19 Promethazine Hcl* (PHENERGAN*) 25 Mg Tablet 25 MG ORAL Q8HR PRN for Nausea & Vomiting, #10 TAB 0 Refills Prov: Cristopher Sal MD 09/29/19 Referrals: NON PHYSICIAN (PCP) Cristopher Sal MD Sep 29, 2019 22:01
[2019-09-29 22:43] LABS: APPEARANCE,URINE CLEAR; BILIRUBIN, URINE NEGATIVE (NEGATIVE); COLOR,URINE PALE YELLOW; GLUCOSE, URINE (UA) NEGATIVE (NEGATIVE); KETONES,URINE NEGATIVE (NEGATIVE); LEUKOCYTE ESTERASE ,URINE 1+ (NEGATIVE); NITRITE,URINE NEGATIVE (NEGATIVE); PH,URINE 6 (4.5-8.0); PROTEIN,URINE NEGATIVE (NEGATIVE); UROBILINOGEN,URINE NORMAL MG/DL (0.0-1.0)
[2019-09-29] MEDS ORDERED: Omnipaque-300 100ml vial INJ PRN (22:45)
--- NOTE | 2019-09-29 23:10 | Diagnostic Imaging Report ---
EXAM: CT Abdomen and Pelvis With Intravenous Contrast CLINICAL HISTORY: ABD PAIN TECHNIQUE: Axial computed tomography images of the abdomen and pelvis with intravenous contrast. CTDI is 4.2 mGy and DLP is 290 mGy-cm. One or more of the following dose reduction techniques were used: automated exposure control, adjustment of the mA and/or kV according to patient size, use of iterative reconstruction technique. COMPARISON: None FINDINGS: Lung bases: Unremarkable. No mass. No consolidation. ABDOMEN: Liver: There is hypoattenuation along the falciform ligament. This may reflect focal fatty deposition. Gallbladder and bile ducts: There is trace nonspecific pericholecystic fluid. There are no radiodense gallstones. No ductal dilation. Pancreas: Unremarkable. No mass. No ductal dilation. Spleen: Unremarkable. No splenomegaly. Adrenals: Unremarkable. No mass. Kidneys and ureters: Unremarkable. No solid mass. No hydronephrosis. Stomach and bowel: There is wall thickening and mild adjacent inflammatory change involving the ascending colon. No obstruction. PELVIS: Appendix: No findings to suggest acute appendicitis. Bladder: Unremarkable. No mass. Reproductive: Unremarkable as visualized. ABDOMEN and PELVIS: Intraperitoneal space: Unremarkable. No free air. No significant fluid collection. Bones/joints: See above. Soft tissues: Unremarkable. Vasculature: Unremarkable. No abdominal aortic aneurysm. Lymph nodes: Unremarkable. No enlarged lymph nodes. IMPRESSION: Probable right-sided colitis. There is suspected secondary inflammation of the gallbladder.
[2019-09-29] MEDS ORDERED: cefTRIAXone 1 GM in NS 55 ML IVPB ONE (23:15)
[2019-09-29] MEDS ORDERED: PHENERGAN25 M1 ORAL (23:42)
[2019-09-29] MEDS ORDERED: NITROFURANTOIN100 M2 ORAL (23:42)
[2019-09-29] MEDS ORDERED: PHENERGAN SUPP25 MG RECTAL (23:42)
[2019-09-29] MEDS ORDERED: ACETAMINOPHEN-1 EAC1 ORAL (23:42)
[2019-09-30] VITALS: BP 106/65
[2019-09-30] MEDS ORDERED: IBU800 MG PO (20:50)
[2019-09-30] MEDS ORDERED: PHENERGAN25 M1 ORAL (20:50)
[2019-09-30] MEDS ORDERED: COLACE100 MG ORAL (20:51)
== END 2019-09-30 00:09 | disposition home or self-care (01) ==
LOC: EMR 20:15
DX: K52.9 Noninfective gastroenteritis and colitis, unspecified (principal); N30.00 Acute cystitis without hematuria; R11.2 Nausea with vomiting, unspecified; C56.9 Malignant neoplasm of unspecified ovary; R56.9 Unspecified convulsions; Z92.21 Personal history of antineoplastic chemotherapy; Z88.5 Allergy status to narcotic agent
CPT/HCPCS: 36415; 74177; 80053; 80307; 81003; 83690; 84703; 85025; 85610; 85730; 87086; 96361; 96365; 96375; 99284; J2765; J7030